=== PATIENT | female | born 1950 | race Hispanic/Latino ===

== ENCOUNTER 2016-11-28 20:43 | Inpatient (IN) | payer OTHER, MEDICARE ==
[2016-11-25 22:05] VITALS: PULSE 128
[2016-11-28 20:50] VITALS: BMI 24.8
[2016-11-29] MEDS: Albuterol-Ipratrop 3 mg / 0.5 (3 ml) UD INH SCH ×4 (01:16→19:22)
[2016-11-29] MEDS: Levothyroxine 25 MCG TAB PO SCH (06:37)
[2016-11-29] MEDS: Magnesium Oxide 400 mg Tab UD PO SCH ×2 (08:52→17:09)
--- NOTE | 2016-11-29 11:59 | CP.PCM.CON ---
History of Present Illness - History of Present Illness History of Present Illness: Dr Rodriguez PMR consultation on Sharlene Morales, born 1950, who is left handed and being admitted to [facility] for acute inpatient rehabilitation following a left CVA with right HP. 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 Review of Systems - Constitutional Constitutional: absent: Anorexia, Chills - EENT Eyes: absent: Blurred Vision, Change in Vision Nose/Mouth/Throat: absent: Nasal Congestion - Cardiovascular Cardiovascular: absent: Chest Pain - Respiratory Respiratory: Cough (smoker) - Gastrointestinal Gastrointestinal: absent: Abdominal Pain - Musculoskeletal Musculoskeletal: absent: Arthralgias, Back Pain - Neurological Neurological: absent: Abnormal Movements, Confusion Past Patient History - Past Medical History & Family History Past Medical History?: Yes - Past Social History Smoking Status: Former Smoker (heavy tobacco use) - CARDIAC Hx Cardiac Disorders: Yes Hx Hypertension: Yes - PULMONARY Hx Bronchitis: Yes - NEUROLOGICAL Hx Neurological Disorder: No - HEENT Hx HEENT Problems: No - RENAL Hx Chronic Kidney Disease: No - ENDOCRINE/METABOLIC Hx Hypothyroidism: Yes - HEMATOLOGICAL/ONCOLOGICAL Hx Blood Disorders: No - INTEGUMENTARY Hx Dermatological Problems: No - MUSCULOSKELETAL/RHEUMATOLOGICAL Hx Falls: Yes - GASTROINTESTINAL Hx Gastrointestinal Disorders: No - GENITOURINARY/GYNECOLOGICAL Hx Genitourinary Disorders: No - PSYCHIATRIC Hx Substance Use: No - SURGICAL HISTORY Other/Comment: Hx of basilio breast biopsy - ANESTHESIA Hx Anesthesia: Yes Hx Anesthesia Reactions: No Hx Malignant Hyperthermia: No Meds Allergies/Adverse Reactions: Allergies Allergy/AdvReac Type Severity Reaction Status Date / Time Antihistamines - Alkylamine Allergy Mild A-fib Verified 11/29/16 04:48 Penicillins Allergy Mild SWELLING Verified 11/29/16 04:48 - Medications Medications: Current Medications Albuterol/Ipratropium (Duoneb 3 Mg/0.5 Mg (3 Ml) Ud) 3 ml INH RQ6 [facility] Last Admin: 11/29/16 07:45 Dose: 3 ml Apixaban (Eliquis) 2.5 mg PO BID [facility] PRN Reason: Protocol Last Admin: 11/29/16 08:52 Dose: 2.5 mg Aspirin (Aspirin Chewable) 81 mg PO DAILY [facility] Last Admin: 11/29/16 08:52 Dose: 81 mg Atorvastatin Calcium (Lipitor) 40 mg PO HS [facility] Last Admin: 11/28/16 23:12 Dose: 40 mg Famotidine (Pepcid) 20 mg PO DAILY [facility] Last Admin: 11/29/16 08:51 Dose: 20 mg Levothyroxine Sodium (Synthroid) 25 mcg PO DAILY@0630 [facility] Last Admin: 11/29/16 06:37 Dose: 25 mcg Magnesium Oxide (Mag-Ox) 400 mg PO BID [facility] Last Admin: 11/29/16 08:52 Dose: 400 mg Metoprolol Tartrate (Lopressor) 12.5 mg PO BID [facility] Last Admin: 11/29/16 08:51 Dose: 12.5 mg Nicotine (Nicoderm Cq) 1 patch TD DAILY [facility] Last Admin: 11/29/16 08:50 Dose: 1 patch Physical Exam - Constitutional Appears: Well, Non-toxic, No Acute Distress - Head Exam Head Exam: ATRAUMATIC, NORMAL INSPECTION, NORMOCEPHALIC - Eye Exam Eye Exam: EOMI - ENT Exam ENT Exam: Mucous Membranes Moist - Respiratory Exam Respiratory Exam: NORMAL BREATHING PATTERN - Cardiovascular Exam Cardiovascular Exam: REGULAR RHYTHM - GI/Abdominal Exam GI & Abdominal Exam: absent: Distended - Extremities Exam Extremities exam: Positive for: full ROM. Negative for: calf tenderness, pedal edema - Neurological Exam Neurological exam: Alert, CN II-XII Intact (mild right UE weakness and pronator drift with dysmetria), Oriented x3 - Psychiatric Exam Psychiatric exam: Normal Affect, Normal Mood - Skin Skin Exam: Warm Results - Vital Signs Recent Vital Signs: Last Vital Signs Temp 98.4 F 11/29/16 08:00 Pulse 90 11/29/16 08:51 Resp 22 11/29/16 08:00 BP 126/66 11/29/16 08:51 Pulse Ox 92 L 11/29/16 08:00 Assessment & Plan - Assessment and Plan (Free Text) Assessment: PT/OT to continue to help increase functional independence Team conference for d/c planning Pain: controlled Vascular: no evidence of DVT GI: No evidence of constipation or diarrhea Patient is an excellent acute rehabilitation candidate and will have focused PT , OT and recreational therapy to help facilitate a safe and appropriate d/c plan impairment code 01.2
--- NOTE | 2016-11-29 12:01 | CP.PCM.PN ---
Subjective - Date & Time of Evaluation Date of Evaluation: 11/29/16 Time of Evaluation: 12:00 - Subjective Subjective: left cva, right HP Objective - Vital Signs/Intake and Output Vital Signs (last 24 hours): Temp Pulse Resp BP Pulse Ox 98.4 F 90 22 126/66 92 L 11/29/16 08:00 11/29/16 08:51 11/29/16 08:00 11/29/16 08:51 11/29/16 08:00 - Medications Medications: Current Medications Albuterol/Ipratropium (Duoneb 3 Mg/0.5 Mg (3 Ml) Ud) 3 ml INH RQ6 [facility] Last Admin: 11/29/16 07:45 Dose: 3 ml Apixaban (Eliquis) 2.5 mg PO BID [facility] PRN Reason: Protocol Last Admin: 11/29/16 08:52 Dose: 2.5 mg Aspirin (Aspirin Chewable) 81 mg PO DAILY [facility] Last Admin: 11/29/16 08:52 Dose: 81 mg Atorvastatin Calcium (Lipitor) 40 mg PO HS [facility] Last Admin: 11/28/16 23:12 Dose: 40 mg Famotidine (Pepcid) 20 mg PO DAILY [facility] Last Admin: 11/29/16 08:51 Dose: 20 mg Levothyroxine Sodium (Synthroid) 25 mcg PO DAILY@0630 [facility] Last Admin: 11/29/16 06:37 Dose: 25 mcg Magnesium Oxide (Mag-Ox) 400 mg PO BID [facility] Last Admin: 11/29/16 08:52 Dose: 400 mg Metoprolol Tartrate (Lopressor) 12.5 mg PO BID [facility] Last Admin: 11/29/16 08:51 Dose: 12.5 mg Nicotine (Nicoderm Cq) 1 patch TD DAILY [facility] Last Admin: 11/29/16 08:50 Dose: 1 patch Physiatry Overall Plan of Care - Overall Plan of Care Estimated Length of Stay in Weeks: 2 Rehab Impairment: Mobility, Gait, Balance, Coordination Etiologic Diagnosis: Cerebrovascular Accident Rehab/Medical Prognosis: Good - Anticipated Interventions Physical Therapy:: Yes Occupational Therapy:: Yes Speech Therapy:: Yes Recreational Therapy:: Yes - Therapy Goals Bed Mobility: Independent Ambulation: Independent Functional Positional Changes:: Independent - Discharge Plan Identification of Barriers to Discharge: Home Situation Discharge Destination: Home
--- NOTE | 2016-11-29 12:56 | HP ---
HISTORY OF PRESENT ILLNESS: Ms. Morales is a 66-year-old female who was admitted to acute rehab following treatment at [facility] for acute cerebrovascular accident. She had a cerebrovascular accident with right-sided weakness and slurred speech and had been treated at [facility] and transferred to acute rehab for further aggressive intervention. PAST MEDICAL HISTORY: She has a past medical history of hypertension, hyperlipidemia, mild COPD from cigarette smoke, and hypothyroidism. FAMILY HISTORY: Remarkable for a sister who has cardiomyopathy. SOCIAL HISTORY: She smokes cigarette, abuses drugs, abuses alcohol. Lives at home with sister and works as a respiratory therapist at [employer]. PHYSICAL EXAMINATION: GENERAL: This patient is alert and oriented to person, place and time. Presently, she has slurred speech and weakness of right arm and leg. VITAL SIGNS: Blood pressure 126/66 with a pulse of 90, respiratory rate of 20 per minute. She is afebrile, O2 sat 92% on room air. SKIN: Shows fair turgor. HEENT: Pupils equal, round, reactive to light and accommodation. Mouth shows fair hygiene. NECK: JVP flat. LUNGS: Clear. HEART: Regular. No murmur, no gallops. ABDOMEN: Soft. Nontender. No organomegaly. EXTREMITIES: She has no edema or cyanosis. CENTRAL NERVOUS SYSTEM: Remarkable for slurred speech and right-sided weakness. LABORATORY DATA: Pending. IMPRESSION: Acute cerebrovascular accident, hyperlipidemia, hypertension, hypothyroidism, mild chronic obstructive pulmonary disease from cigarette smoking. PLAN: Continue aggressive rehab. Physiatry evaluation and speech therapy evaluation for swallowing prior to advancing diet. Jad Marcano MD
--- NOTE | 2016-11-29 14:41 | CON ---
DATE: 11/29/2016 NEUROLOGY CONSULTATION CHIEF COMPLAINT: Right-sided weakness status post basal ganglia CVA. HISTORY OF PRESENT ILLNESS: A 66-year-old woman with past medical history of hypertension, hyperlipidemia, mild COPD from cigarette smoking, hypothyroidism was recently admitted to [facility] because of right-sided, slurred speech and found to have A-fib with rapid RVR. She underwent an JEAN and double bubble study which was negative as well as carotid Doppler which showed no significant carotid stenosis and was placed on Eliquis given her risk of A-fib for stroke prevention as well as aspirin 81 mg p.o. daily. She is currently in [facility] for acute rehabilitation for poor balance and mild right-sided weakness. PAST MEDICAL HISTORY: She has history of hypertension, hyperlipidemia, mild COPD from cigarette smoking, and hypothyroidism. FAMILY HISTORY: Sister has history of cardiomyopathy. SOCIAL HISTORY: Smokes cigarettes, abuses drugs, abuses alcohol in the past. Lives at home with sister and works as respiratory therapist at [employer]. ALLERGIES: ANTIHISTAMINES AND PENICILLIN. REVIEW OF SYSTEMS: A 14-point review of system is negative except for HPI. PHYSICAL EXAMINATION GENERAL: The patient seen in the chair, in no acute distress. VITAL SIGNS: Temperature 98.4, pulse rate 90, blood pressure 126/60, respiratory rate 20, oxygen saturation 92% via room air. HEENT: Atraumatic, normocephalic. PERRLA. Extraocular muscles intact. NECK: Supple. No JVD. No adenopathy noted. LUNGS: Clear to auscultation. No adventitious sounds. HEART: S1 and S2, normal rate and rhythm. No murmur, rubs, or gallops. ABDOMEN: Soft, nontender, nondistended. Bowel sounds present. EXTREMITIES: No clubbing. No cyanosis. Peripheral pulses 2+ felt bilaterally. NEUROLOGIC: The patient is alert and oriented to person, place, month, and year. Speech is slightly dysarthric. No aphasia noted. Recall after 5 minutes is 2/3. Cranial nerves II through XII are intact except for slight right facial droop. Otherwise motor exam has 4+ to 5-/5 right-sided weakness compare to left. Right toe is upgoing. Left toe is downgoing. Sensory exam: Light touch pinprick, proprioception, and vibration is intact. DTRs are 2+ throughout. Coordination of [id number] intact. Gait deferred for now. LABORATORY DATA: Sodium 144, potassium 4.5, chloride of 105, carbon dioxide 29, BUN of 16, creatinine 0.8, random glucose 118. ASSESSMENT AND PLAN: This is a 66-year-old woman with history of hypertension, dyslipidemia, cigarette smoker's mild chronic obstructive pulmonary disease, hypothyroidism who was seen at [facility] for right-sided weakness and slurred speech, found to have an acute left basal ganglia infarct as well as olivas radiata which was responsible for her underlying right-sided weakness and poor balance secondary to underlying diffuse atherosclerosis from underlying hypertension and hyperlipidemia. She was also found an atrial fibrillation rapid ventricular response paroxysmally which makes her at risk for further strokes in the future. Therefore, she is placed on Eliquis 2.5 mg p.o. b.i.d. A carotid Doppler and transesophageal echo with bubble study were negative for any acute abnormalities. At this time she is in [facility] for physical and occupational therapy and speech therapy. RECOMMENDATIONS: 1. At this time we will recommend to continue with Eliquis 2.5 mg p.o. b.i.d. and baby aspirin 81 mg p.o. daily and Lipitor 40 mg p.o. at bedtime for stroke prevention. 2. Monitor her heart rate. 3. Continue with levothyroxine 25 mcg p.o. daily for underlying hypothyroidism. 4. Advise cigarette cessation. 5. Continue with PT/OT and speech therapy and acute rehab. Thank you for this consult. Alan Enriquez MD
[2016-11-30] MEDS: Albuterol-Ipratrop 3 mg / 0.5 (3 ml) UD INH SCH ×4 (04:44→19:47)
[2016-11-30] MEDS: Levothyroxine 25 MCG TAB PO SCH (06:27)
[2016-11-30 06:55] LABS: HEMATOCRIT 34.7 % (34.0-47.0); MEAN CELL VOLUME 106.4 fl (81.0-99.0); MEAN CORPUSCULAR HEMOGLOBIN 35.8 pg (27.0-31.0); MEAN CORPUSCULAR HGB CONC 33.6 g/dL (33.0-37.0); WHITE BLOOD COUNT 5.2 K/uL (4.8-10.8)
[2016-11-30 07:07] LABS: ALB/GLOB RATIO 1.2 (1.0-2.1); ALKALINE PHOSPHATASE 43 U/L (38-126); ALT/SGPT 29 U/L (9-52); AST/SGOT 26 U/L (14-36); BILIRUBIN,TOTAL 0.6 mg/dl (0.2-1.3); BLOOD UREA NITROGEN 15 mg/dl (7-17); CALCIUM 9.2 mg/dL (8.4-10.2); CARBON DIOXIDE 32 mmol/L (22-30); CHLORIDE 104 mmol/L (98-107); CHOLESTEROL 141 mg/dL (0-199); GFR AFRICAN-AMERICAN > 60; GLUCOSE,RANDOM 104 mg/dL (65-105); POTASSIUM 4.5 MMOL/L (3.6-5.0); SODIUM 141 mmol/l (132-148); TOTAL PROTEIN 6.2 G/DL (6.3-8.2)
[2016-11-30] MEDS: Magnesium Oxide 400 mg Tab UD PO SCH ×2 (08:49→17:45)
--- NOTE | 2016-11-30 09:29 | CP.PCM.PN ---
Subjective - Date & Time of Evaluation Date of Evaluation: 11/30/16 Time of Evaluation: 09:29 - Subjective Subjective: R ARM AND LEG WEAKNESS PERSIST SPEECH STILL SLURRED Objective - Vital Signs/Intake and Output Vital Signs (last 24 hours): Temp Pulse Resp BP Pulse Ox 98.1 F 70 22 140/85 95 11/30/16 08:58 11/30/16 08:58 11/30/16 08:58 11/30/16 08:58 11/30/16 08:58 - Medications Medications: Current Medications Albuterol/Ipratropium (Duoneb 3 Mg/0.5 Mg (3 Ml) Ud) 3 ml INH RQ6 [facility] Last Admin: 11/30/16 07:20 Dose: 3 ml Apixaban (Eliquis) 2.5 mg PO BID [facility] PRN Reason: Protocol Last Admin: 11/30/16 08:49 Dose: 2.5 mg Aspirin (Aspirin Chewable) 81 mg PO DAILY [facility] Last Admin: 11/30/16 08:49 Dose: 81 mg Atorvastatin Calcium (Lipitor) 40 mg PO HS [facility] Last Admin: 11/29/16 21:35 Dose: 40 mg Famotidine (Pepcid) 20 mg PO DAILY [facility] Last Admin: 11/30/16 08:50 Dose: 20 mg Levothyroxine Sodium (Synthroid) 25 mcg PO DAILY@0630 [facility] Last Admin: 11/30/16 06:27 Dose: 25 mcg Magnesium Oxide (Mag-Ox) 400 mg PO BID [facility] Last Admin: 11/30/16 08:49 Dose: 400 mg Metoprolol Tartrate (Lopressor) 12.5 mg PO BID [facility] Last Admin: 11/30/16 08:47 Dose: 12.5 mg Nicotine (Nicoderm Cq) 1 patch TD DAILY [facility] Last Admin: 11/30/16 08:49 Dose: 1 patch - Labs Labs: 11/30/16 06:15 11/30/16 06:15 - Constitutional Appears: No Acute Distress - Head Exam Head Exam: ATRAUMATIC, NORMAL INSPECTION, NORMOCEPHALIC - Eye Exam Eye Exam: EOMI, Normal appearance, PERRL Pupil Exam: NORMAL ACCOMODATION, PERRL - ENT Exam ENT Exam: Mucous Membranes Moist, Normal Exam - Neck Exam Neck Exam: Full ROM, Normal Inspection. absent: Lymphadenopathy - Respiratory Exam Respiratory Exam: Clear to Ausculation Bilateral, NORMAL BREATHING PATTERN - Cardiovascular Exam Cardiovascular Exam: REGULAR RHYTHM, +S1, +S2. absent: Murmur - GI/Abdominal Exam GI & Abdominal Exam: Soft, Normal Bowel Sounds. absent: Tenderness - Rectal Exam Rectal Exam: NORMAL INSPECTION - Extremities Exam Extremities Exam: Full ROM, Normal Capillary Refill, Normal Inspection. absent : Joint Swelling, Pedal Edema Additional comments: R ARM AND LEG WEAKNESS - Back Exam Back Exam: NORMAL INSPECTION - Neurological Exam Neurological Exam: Alert, Awake, CN II-XII Intact, Oriented x3 Additional comments: R ARM AND LEG WEAKNESS WITH SLURRED SPEECH - Psychiatric Exam Psychiatric exam: Normal Affect, Normal Mood - Skin Skin Exam: Dry, Intact, Normal Color, Warm Assessment and Plan - Assessment and Plan (Free Text) Assessment: CVA WITH R HEMIPARESES Plan: CONTINUE PRESENT RX
[2016-11-30] MEDS: Promethazine DM 12.5 mg-30 mg/10 ml Syrup PO PRN (17:44)
--- NOTE | 2016-11-30 18:01 | CP.PCM.PN ---
Subjective - Date & Time of Evaluation Date of Evaluation: 11/30/16 Time of Evaluation: 18:01 - Subjective Subjective: Patient seen in room in good spirits feels good no pain continued gains in therapies excellent acute rehab patient Objective - Vital Signs/Intake and Output Vital Signs (last 24 hours): Temp Pulse Resp BP Pulse Ox 98.1 F 93 H 22 135/75 94 L 11/30/16 08:58 11/30/16 17:41 11/30/16 08:58 11/30/16 17:41 11/30/16 10:16 - Medications Medications: Current Medications Albuterol/Ipratropium (Duoneb 3 Mg/0.5 Mg (3 Ml) Ud) 3 ml INH RQ6 [facility] Last Admin: 11/30/16 13:21 Dose: 3 ml Apixaban (Eliquis) 2.5 mg PO BID [facility] PRN Reason: Protocol Last Admin: 11/30/16 17:40 Dose: 2.5 mg Aspirin (Aspirin Chewable) 81 mg PO DAILY [facility] Last Admin: 11/30/16 08:49 Dose: 81 mg Atorvastatin Calcium (Lipitor) 40 mg PO HS [facility] Last Admin: 11/29/16 21:35 Dose: 40 mg Famotidine (Pepcid) 20 mg PO DAILY [facility] Last Admin: 11/30/16 08:50 Dose: 20 mg Levothyroxine Sodium (Synthroid) 25 mcg PO DAILY@0630 [facility] Last Admin: 11/30/16 06:27 Dose: 25 mcg Magnesium Oxide (Mag-Ox) 400 mg PO BID [facility] Last Admin: 11/30/16 17:45 Dose: 400 mg Metoprolol Tartrate (Lopressor) 12.5 mg PO BID [facility] Last Admin: 11/30/16 17:41 Dose: 12.5 mg Nicotine (Nicoderm Cq) 1 patch TD DAILY [facility] Last Admin: 11/30/16 08:49 Dose: 1 patch Promethazine HCl/Dextromethorphan (Phenergan Dm Syrup) 10 ml PO Q4 [facility] PRN Reason: Cough Last Admin: 11/30/16 17:44 Dose: 10 ml - Labs Labs: 11/30/16 06:15 11/30/16 06:15
[2016-12-01] MEDS: Albuterol-Ipratrop 3 mg / 0.5 (3 ml) UD INH SCH ×4 (01:10→19:58)
[2016-12-01] MEDS: Levothyroxine 25 MCG TAB PO SCH (06:46)
[2016-12-01] MEDS: Magnesium Oxide 400 mg Tab UD PO SCH ×2 (08:12→17:10)
[2016-12-01] MEDS: Promethazine DM 12.5 mg-30 mg/10 ml Syrup PO PRN ×2 (08:14→08:22)
--- NOTE | 2016-12-01 15:26 | CP.PCM.PN ---
Subjective - Date & Time of Evaluation Date of Evaluation: 12/01/16 Time of Evaluation: 15:26 - Subjective Subjective: WEAKNESS OF R ARM AND LEG IMPROVING MEMORY STILL POOR Objective - Vital Signs/Intake and Output Vital Signs (last 24 hours): Temp Pulse Resp BP Pulse Ox 98 F 95 H 20 130/104 H 95 12/01/16 08:10 12/01/16 08:12 12/01/16 08:10 12/01/16 08:12 12/01/16 08:10 - Medications Medications: Current Medications Albuterol/Ipratropium (Duoneb 3 Mg/0.5 Mg (3 Ml) Ud) 3 ml INH RQ6 [facility] Last Admin: 12/01/16 13:11 Dose: Not Given Apixaban (Eliquis) 2.5 mg PO BID [facility] PRN Reason: Protocol Last Admin: 12/01/16 08:14 Dose: 2.5 mg Aspirin (Aspirin Chewable) 81 mg PO DAILY [facility] Last Admin: 12/01/16 08:12 Dose: 81 mg Atorvastatin Calcium (Lipitor) 40 mg PO HS [facility] Last Admin: 11/30/16 21:37 Dose: 40 mg Famotidine (Pepcid) 20 mg PO DAILY [facility] Last Admin: 12/01/16 08:12 Dose: 20 mg Levothyroxine Sodium (Synthroid) 25 mcg PO DAILY@0630 [facility] Last Admin: 12/01/16 06:46 Dose: 25 mcg Magnesium Oxide (Mag-Ox) 400 mg PO BID [facility] Last Admin: 12/01/16 08:12 Dose: 400 mg Metoprolol Tartrate (Lopressor) 12.5 mg PO BID [facility] Last Admin: 12/01/16 08:12 Dose: 12.5 mg Nicotine (Nicoderm Cq) 1 patch TD DAILY [facility] Last Admin: 12/01/16 08:13 Dose: 1 patch Promethazine HCl/Dextromethorphan (Phenergan Dm Syrup) 10 ml PO Q4 [facility] PRN Reason: Cough Last Admin: 12/01/16 08:22 Dose: 10 ml - Labs Labs: 11/30/16 06:15 11/30/16 06:15 - Constitutional Appears: Well - Head Exam Head Exam: ATRAUMATIC, NORMAL INSPECTION, NORMOCEPHALIC - Eye Exam Eye Exam: EOMI, Normal appearance, PERRL Pupil Exam: NORMAL ACCOMODATION, PERRL - ENT Exam ENT Exam: Mucous Membranes Moist, Normal Exam - Neck Exam Neck Exam: Full ROM, Normal Inspection. absent: Lymphadenopathy - Respiratory Exam Respiratory Exam: Clear to Ausculation Bilateral, NORMAL BREATHING PATTERN - Cardiovascular Exam Cardiovascular Exam: REGULAR RHYTHM, +S1, +S2. absent: Murmur - GI/Abdominal Exam GI & Abdominal Exam: Soft, Normal Bowel Sounds. absent: Tenderness - Rectal Exam Rectal Exam: NORMAL INSPECTION - Extremities Exam Extremities Exam: Full ROM, Normal Capillary Refill, Normal Inspection. absent : Joint Swelling, Pedal Edema Additional comments: WEAKNESS R ARM AND LEG - Back Exam Back Exam: NORMAL INSPECTION - Neurological Exam Neurological Exam: Abnormal Gait, Alert, Awake, CN II-XII Intact, Oriented x3 - Psychiatric Exam Psychiatric exam: Normal Affect, Normal Mood - Skin Skin Exam: Dry, Intact, Normal Color, Warm Assessment and Plan - Assessment and Plan (Free Text) Assessment: CVA HTN HYPOTHYROIDISM Plan: CARDIOLOGY EVAL CONTINUE PT/OT
--- NOTE | 2016-12-01 16:07 | CP.PCM.CON ---
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 Has regained almost all her strength in Right arm and leg Speech is much better but not 100% Apparently pt had a bout of transient Atrial Fibrillation in the past but has been in NSR for years; off all meds Echo and JEAN were done in [facility] no report PMH: Hypertension Hypothyroid Hyperlipidemia Past Patient History - Past Medical History & Family History Past Medical History?: Yes - Past Social History Smoking Status: Former Smoker (heavy tobacco use) - CARDIAC Hx Cardiac Disorders: Yes Hx Hypertension: Yes - PULMONARY Hx Bronchitis: Yes - NEUROLOGICAL Hx Neurological Disorder: No - HEENT Hx HEENT Problems: No - RENAL Hx Chronic Kidney Disease: No - ENDOCRINE/METABOLIC Hx Hypothyroidism: Yes - HEMATOLOGICAL/ONCOLOGICAL Hx Blood Disorders: No - INTEGUMENTARY Hx Dermatological Problems: No - MUSCULOSKELETAL/RHEUMATOLOGICAL Hx Falls: Yes - GASTROINTESTINAL Hx Gastrointestinal Disorders: No - GENITOURINARY/GYNECOLOGICAL Hx Genitourinary Disorders: No - PSYCHIATRIC Hx Substance Use: No - SURGICAL HISTORY Other/Comment: Hx of basilio breast biopsy - ANESTHESIA Hx Anesthesia: Yes Hx Anesthesia Reactions: No Hx Malignant Hyperthermia: No Meds Allergies/Adverse Reactions: Allergies Allergy/AdvReac Type Severity Reaction Status Date / Time Antihistamines - Alkylamine Allergy Mild A-fib Verified 11/29/16 04:48 Penicillins Allergy Mild SWELLING Verified 11/29/16 04:48 - Medications Medications: Current Medications Albuterol/Ipratropium (Duoneb 3 Mg/0.5 Mg (3 Ml) Ud) 3 ml INH RQ6 [facility] Last Admin: 12/01/16 13:11 Dose: Not Given Apixaban (Eliquis) 2.5 mg PO BID [facility] PRN Reason: Protocol Last Admin: 12/01/16 08:14 Dose: 2.5 mg Aspirin (Aspirin Chewable) 81 mg PO DAILY [facility] Last Admin: 12/01/16 08:12 Dose: 81 mg Atorvastatin Calcium (Lipitor) 40 mg PO HS [facility] Last Admin: 11/30/16 21:37 Dose: 40 mg Famotidine (Pepcid) 20 mg PO DAILY [facility] Last Admin: 12/01/16 08:12 Dose: 20 mg Levothyroxine Sodium (Synthroid) 25 mcg PO DAILY@0630 [facility] Last Admin: 12/01/16 06:46 Dose: 25 mcg Magnesium Oxide (Mag-Ox) 400 mg PO BID [facility] Last Admin: 12/01/16 08:12 Dose: 400 mg Metoprolol Tartrate (Lopressor) 12.5 mg PO BID [facility] Last Admin: 12/01/16 08:12 Dose: 12.5 mg Nicotine (Nicoderm Cq) 1 patch TD DAILY [facility] Last Admin: 12/01/16 08:13 Dose: 1 patch Promethazine HCl/Dextromethorphan (Phenergan Dm Syrup) 10 ml PO Q4 PRN PRN Reason: Cough Last Admin: 12/01/16 08:22 Dose: 10 ml Results - Vital Signs Recent Vital Signs: Last Vital Signs Temp 98 F 12/01/16 08:10 Pulse 95 H 12/01/16 08:12 Resp 20 12/01/16 08:10 BP 130/104 H 12/01/16 08:12 Pulse Ox 95 12/01/16 08:10 - Labs Result Diagrams: 11/30/16 06:15 11/30/16 06:15 Assessment & Plan (1) CVA (cerebral vascular accident) Status: Acute Priority: High (2) History of atrial fibrillation Assessment and Plan: Cardiac-lepe the patient appears to be stable She is not in initial fibrillation she is in normal sinus rhythm. will Research the results of the echocardiogram and the JEAN Status: Acute (3) History of hypertension Status: Chronic (4) History of hypothyroidism Status: Chronic
[2016-12-02] MEDS: Albuterol-Ipratrop 3 mg / 0.5 (3 ml) UD INH SCH ×4 (02:34→19:23)
[2016-12-02] MEDS: Levothyroxine 25 MCG TAB PO SCH (06:31)
[2016-12-02] MEDS: Magnesium Oxide 400 mg Tab UD PO SCH ×2 (08:20→16:58)
--- NOTE | 2016-12-02 10:49 | CP.PCM.PN ---
Subjective - Date & Time of Evaluation Date of Evaluation: 12/02/16 Time of Evaluation: 10:51 - Subjective Subjective: NO NEW CLINICAL FINDINGS Objective - Vital Signs/Intake and Output Vital Signs (last 24 hours): Temp Pulse Resp BP Pulse Ox 98.4 F 62 22 135/73 94 L 12/02/16 08:38 12/02/16 08:38 12/02/16 08:38 12/02/16 08:38 12/02/16 08:38 - Medications Medications: Current Medications Albuterol/Ipratropium (Duoneb 3 Mg/0.5 Mg (3 Ml) Ud) 3 ml INH RQ6 [facility] Last Admin: 12/02/16 07:10 Dose: 3 ml Apixaban (Eliquis) 2.5 mg PO BID [facility] PRN Reason: Protocol Last Admin: 12/02/16 08:19 Dose: 2.5 mg Aspirin (Aspirin Chewable) 81 mg PO DAILY [facility] Last Admin: 12/02/16 08:19 Dose: 81 mg Atorvastatin Calcium (Lipitor) 40 mg PO HS [facility] Last Admin: 12/01/16 21:51 Dose: 40 mg Famotidine (Pepcid) 20 mg PO DAILY [facility] Last Admin: 12/02/16 08:20 Dose: 20 mg Levothyroxine Sodium (Synthroid) 25 mcg PO DAILY@0630 [facility] Last Admin: 12/02/16 06:31 Dose: 25 mcg Magnesium Oxide (Mag-Ox) 400 mg PO BID [facility] Last Admin: 12/02/16 08:20 Dose: 400 mg Metoprolol Tartrate (Lopressor) 12.5 mg PO BID [facility] Last Admin: 12/02/16 08:21 Dose: 12.5 mg Nicotine (Nicoderm Cq) 1 patch TD DAILY [facility] Last Admin: 12/02/16 08:20 Dose: 1 patch Promethazine HCl/Dextromethorphan (Phenergan Dm Syrup) 10 ml PO Q4 PRN PRN Reason: Cough Last Admin: 12/01/16 08:22 Dose: 10 ml - Labs Labs: 11/30/16 06:15 11/30/16 06:15 - Constitutional Appears: No Acute Distress - Head Exam Head Exam: ATRAUMATIC, NORMAL INSPECTION, NORMOCEPHALIC - Eye Exam Eye Exam: EOMI, Normal appearance, PERRL Pupil Exam: NORMAL ACCOMODATION, PERRL - ENT Exam ENT Exam: Mucous Membranes Moist, Normal Exam - Neck Exam Neck Exam: Full ROM, Normal Inspection. absent: Lymphadenopathy - Respiratory Exam Respiratory Exam: Clear to Ausculation Bilateral, NORMAL BREATHING PATTERN - Cardiovascular Exam Cardiovascular Exam: REGULAR RHYTHM, +S1, +S2. absent: Murmur - GI/Abdominal Exam GI & Abdominal Exam: Soft, Normal Bowel Sounds. absent: Tenderness - Rectal Exam Rectal Exam: NORMAL INSPECTION - Extremities Exam Extremities Exam: Full ROM, Normal Capillary Refill, Normal Inspection. absent : Joint Swelling, Pedal Edema Additional comments: R ARM AND LEG WEAKNESS IMPROVING - Back Exam Back Exam: NORMAL INSPECTION - Neurological Exam Neurological Exam: Alert, Awake, CN II-XII Intact, Normal Gait, Oriented x3 Additional comments: WEAKNESS OF R ARM AND LEG IMPROVING - Psychiatric Exam Psychiatric exam: Normal Affect, Normal Mood - Skin Skin Exam: Dry, Intact, Normal Color, Warm Assessment and Plan - Assessment and Plan (Free Text) Assessment: CVA HTN PAROXYSMAL A.FIB HYPOTHYROIDISM SMOKER'S COUGH Plan: CONTINUE RX ORDERED
--- NOTE | 2016-12-02 11:44 | CP.PCM.PN ---
Subjective - Date & Time of Evaluation Date of Evaluation: 12/02/16 Time of Evaluation: 11:43 - Subjective Subjective: Patient seen in [facility] (formerly [facility]) well without AD now improved balance, safety and endurance continue current care Objective - Vital Signs/Intake and Output Vital Signs (last 24 hours): Temp Pulse Resp BP Pulse Ox 98.4 F 62 22 135/73 94 L 12/02/16 08:38 12/02/16 08:38 12/02/16 08:38 12/02/16 08:38 12/02/16 08:38 - Medications Medications: Current Medications Albuterol/Ipratropium (Duoneb 3 Mg/0.5 Mg (3 Ml) Ud) 3 ml INH RQ6 [facility] Last Admin: 12/02/16 07:10 Dose: 3 ml Apixaban (Eliquis) 2.5 mg PO BID [facility] PRN Reason: Protocol Last Admin: 12/02/16 08:19 Dose: 2.5 mg Aspirin (Aspirin Chewable) 81 mg PO DAILY [facility] Last Admin: 12/02/16 08:19 Dose: 81 mg Atorvastatin Calcium (Lipitor) 40 mg PO HS [facility] Last Admin: 12/01/16 21:51 Dose: 40 mg Famotidine (Pepcid) 20 mg PO DAILY [facility] Last Admin: 12/02/16 08:20 Dose: 20 mg Levothyroxine Sodium (Synthroid) 25 mcg PO DAILY@0630 [facility] Last Admin: 12/02/16 06:31 Dose: 25 mcg Magnesium Oxide (Mag-Ox) 400 mg PO BID [facility] Last Admin: 12/02/16 08:20 Dose: 400 mg Metoprolol Tartrate (Lopressor) 12.5 mg PO BID [facility] Last Admin: 12/02/16 08:21 Dose: 12.5 mg Nicotine (Nicoderm Cq) 1 patch TD DAILY [facility] Last Admin: 12/02/16 08:20 Dose: 1 patch Promethazine HCl/Dextromethorphan (Phenergan Dm Syrup) 10 ml PO Q4 PRN PRN Reason: Cough Last Admin: 12/01/16 08:22 Dose: 10 ml - Labs Labs: 11/30/16 06:15 11/30/16 06:15
[2016-12-02] MEDS: Promethazine DM 12.5 mg-30 mg/10 ml Syrup PO PRN (20:28)
[2016-12-03] MEDS: Albuterol-Ipratrop 3 mg / 0.5 (3 ml) UD INH SCH ×4 (00:59→20:06)
[2016-12-03] MEDS: Levothyroxine 25 MCG TAB PO SCH (06:59)
[2016-12-03] MEDS: Magnesium Oxide 400 mg Tab UD PO SCH ×2 (08:10→17:05)
--- NOTE | 2016-12-03 10:55 | CP.PCM.PN ---
Subjective - Date & Time of Evaluation Date of Evaluation: 12/03/16 Time of Evaluation: 10:55 - Subjective Subjective: continues to show marked clinical improvement in both speech and muscle strenght Objective - Vital Signs/Intake and Output Vital Signs (last 24 hours): Temp Pulse Resp BP Pulse Ox 97.3 F L 61 20 114/69 96 12/03/16 09:25 12/03/16 09:25 12/03/16 09:25 12/03/16 09:25 12/03/16 09:25 - Medications Medications: Current Medications Albuterol/Ipratropium (Duoneb 3 Mg/0.5 Mg (3 Ml) Ud) 3 ml INH RQ6 [facility] Last Admin: 12/03/16 08:57 Dose: 3 ml Apixaban (Eliquis) 2.5 mg PO BID [facility] PRN Reason: Protocol Last Admin: 12/03/16 08:09 Dose: 2.5 mg Aspirin (Aspirin Chewable) 81 mg PO DAILY [facility] Last Admin: 12/03/16 08:09 Dose: 81 mg Atorvastatin Calcium (Lipitor) 40 mg PO HS [facility] Last Admin: 12/02/16 21:11 Dose: 40 mg Famotidine (Pepcid) 20 mg PO DAILY [facility] Last Admin: 12/03/16 08:11 Dose: 20 mg Levothyroxine Sodium (Synthroid) 25 mcg PO DAILY@0630 [facility] Last Admin: 12/03/16 06:59 Dose: 25 mcg Magnesium Oxide (Mag-Ox) 400 mg PO BID [facility] Last Admin: 12/03/16 08:10 Dose: 400 mg Metoprolol Tartrate (Lopressor) 12.5 mg PO BID [facility] Last Admin: 12/03/16 08:10 Dose: 12.5 mg Nicotine (Nicoderm Cq) 1 patch TD DAILY [facility] Last Admin: 12/03/16 08:10 Dose: 1 patch Promethazine HCl/Dextromethorphan (Phenergan Dm Syrup) 10 ml PO Q4 PRN PRN Reason: Cough Last Admin: 12/02/16 20:28 Dose: 10 ml - Labs Labs: 11/30/16 06:15 11/30/16 06:15 - Constitutional Appears: No Acute Distress - Head Exam Head Exam: ATRAUMATIC, NORMAL INSPECTION, NORMOCEPHALIC - Eye Exam Eye Exam: EOMI, Normal appearance, PERRL Pupil Exam: NORMAL ACCOMODATION, PERRL - ENT Exam ENT Exam: Mucous Membranes Moist, Normal Exam - Neck Exam Neck Exam: Full ROM, Normal Inspection. absent: Lymphadenopathy - Respiratory Exam Respiratory Exam: Clear to Ausculation Bilateral, NORMAL BREATHING PATTERN - Cardiovascular Exam Cardiovascular Exam: REGULAR RHYTHM, +S1, +S2. absent: Murmur - GI/Abdominal Exam GI & Abdominal Exam: Soft, Normal Bowel Sounds. absent: Tenderness - Rectal Exam Rectal Exam: NORMAL INSPECTION - Extremities Exam Extremities Exam: Full ROM, Normal Capillary Refill, Normal Inspection. absent : Joint Swelling, Pedal Edema - Back Exam Back Exam: NORMAL INSPECTION - Neurological Exam Neurological Exam: Alert, Awake, CN II-XII Intact, Normal Gait, Oriented x3 - Psychiatric Exam Psychiatric exam: Normal Affect, Normal Mood - Skin Skin Exam: Dry, Intact, Normal Color, Warm Assessment and Plan - Assessment and Plan (Free Text) Assessment: acute cva htn hypothyroidism Plan: continue aggressive pt/ot
[2016-12-04] MEDS: Albuterol-Ipratrop 3 mg / 0.5 (3 ml) UD INH SCH ×4 (02:05→19:19)
[2016-12-04] MEDS: Levothyroxine 25 MCG TAB PO SCH (06:54)
[2016-12-04] MEDS: Magnesium Oxide 400 mg Tab UD PO SCH ×2 (08:26→17:10)
--- NOTE | 2016-12-04 08:48 | CP.PCM.PN ---
Subjective - Date & Time of Evaluation Date of Evaluation: 12/04/16 Time of Evaluation: 08:48 - Subjective Subjective: no new clinical findings c/o cough Objective - Vital Signs/Intake and Output Vital Signs (last 24 hours): Temp Pulse Resp BP Pulse Ox 97.7 F 64 18 121/65 95 12/04/16 07:47 12/04/16 08:23 12/04/16 07:47 12/04/16 08:23 12/04/16 07:47 - Medications Medications: Current Medications Albuterol/Ipratropium (Duoneb 3 Mg/0.5 Mg (3 Ml) Ud) 3 ml INH RQ6 [facility] Last Admin: 12/04/16 07:39 Dose: 3 ml Apixaban (Eliquis) 2.5 mg PO BID [facility] PRN Reason: Protocol Last Admin: 12/04/16 08:25 Dose: 2.5 mg Aspirin (Aspirin Chewable) 81 mg PO DAILY [facility] Last Admin: 12/04/16 08:26 Dose: 81 mg Atorvastatin Calcium (Lipitor) 40 mg PO HS [facility] Last Admin: 12/03/16 21:17 Dose: 40 mg Famotidine (Pepcid) 20 mg PO DAILY [facility] Last Admin: 12/04/16 08:26 Dose: 20 mg Levothyroxine Sodium (Synthroid) 25 mcg PO DAILY@0630 [facility] Last Admin: 12/04/16 06:54 Dose: 25 mcg Magnesium Oxide (Mag-Ox) 400 mg PO BID [facility] Last Admin: 12/04/16 08:26 Dose: 400 mg Metoprolol Tartrate (Lopressor) 12.5 mg PO BID [facility] Last Admin: 12/04/16 08:23 Dose: 12.5 mg Nicotine (Nicoderm Cq) 1 patch TD DAILY [facility] Last Admin: 12/04/16 08:22 Dose: 1 patch Promethazine HCl/Dextromethorphan (Phenergan Dm Syrup) 10 ml PO Q4 PRN PRN Reason: Cough Last Admin: 12/02/16 20:28 Dose: 10 ml - Labs Labs: 11/30/16 06:15 11/30/16 06:15 - Constitutional Appears: No Acute Distress - Head Exam Head Exam: ATRAUMATIC, NORMAL INSPECTION, NORMOCEPHALIC - Eye Exam Eye Exam: EOMI, Normal appearance, PERRL Pupil Exam: NORMAL ACCOMODATION, PERRL - ENT Exam ENT Exam: Mucous Membranes Moist, Normal Exam - Neck Exam Neck Exam: Full ROM, Normal Inspection. absent: Lymphadenopathy - Respiratory Exam Respiratory Exam: Clear to Ausculation Bilateral, NORMAL BREATHING PATTERN - Cardiovascular Exam Cardiovascular Exam: REGULAR RHYTHM, +S1, +S2. absent: Murmur - GI/Abdominal Exam GI & Abdominal Exam: Soft, Normal Bowel Sounds. absent: Tenderness - Rectal Exam Rectal Exam: NORMAL INSPECTION - Extremities Exam Extremities Exam: Full ROM, Normal Capillary Refill, Normal Inspection. absent : Joint Swelling, Pedal Edema Additional comments: weakness of r arm and leg - Back Exam Back Exam: NORMAL INSPECTION - Neurological Exam Neurological Exam: Abnormal Gait, Alert, Awake, CN II-XII Intact, Oriented x3 Additional comments: slurred speech - Psychiatric Exam Psychiatric exam: Normal Affect, Normal Mood - Skin Skin Exam: Dry, Intact, Normal Color, Warm Assessment and Plan - Assessment and Plan (Free Text) Assessment: acute cva htn paroxysmal atrial fib
--- NOTE | 2016-12-04 09:59 | CP.PCM.PN ---
Subjective - Date & Time of Evaluation Date of Evaluation: 12/04/16 Time of Evaluation: 09:30 - Subjective Subjective: Pt walking in the corridor with little assistance Speech and rt arm much improved HR 68 BPN, reg BP 124/70 mm Hg No chf Pt anticoagulated Objective - Vital Signs/Intake and Output Vital Signs (last 24 hours): Temp Pulse Resp BP Pulse Ox 97.7 F 64 18 121/65 95 12/04/16 07:47 12/04/16 08:23 12/04/16 07:47 12/04/16 08:23 12/04/16 07:47 - Medications Medications: Current Medications Albuterol/Ipratropium (Duoneb 3 Mg/0.5 Mg (3 Ml) Ud) 3 ml INH RQ6 [facility] Last Admin: 12/04/16 07:39 Dose: 3 ml Apixaban (Eliquis) 2.5 mg PO BID [facility] PRN Reason: Protocol Last Admin: 12/04/16 08:25 Dose: 2.5 mg Aspirin (Aspirin Chewable) 81 mg PO DAILY [facility] Last Admin: 12/04/16 08:26 Dose: 81 mg Atorvastatin Calcium (Lipitor) 40 mg PO HS [facility] Last Admin: 12/03/16 21:17 Dose: 40 mg Famotidine (Pepcid) 20 mg PO DAILY [facility] Last Admin: 12/04/16 08:26 Dose: 20 mg Levothyroxine Sodium (Synthroid) 25 mcg PO DAILY@0630 [facility] Last Admin: 12/04/16 06:54 Dose: 25 mcg Magnesium Oxide (Mag-Ox) 400 mg PO BID [facility] Last Admin: 12/04/16 08:26 Dose: 400 mg Metoprolol Tartrate (Lopressor) 12.5 mg PO BID [facility] Last Admin: 12/04/16 08:23 Dose: 12.5 mg Nicotine (Nicoderm Cq) 1 patch TD DAILY [facility] Last Admin: 12/04/16 08:22 Dose: 1 patch Promethazine HCl/Dextromethorphan (Phenergan Dm Syrup) 10 ml PO Q4 PRN PRN Reason: Cough Last Admin: 12/02/16 20:28 Dose: 10 ml - Labs Labs: 11/30/16 06:15 11/30/16 06:15
--- NOTE | 2016-12-04 11:23 | CARD ---
APPROVED REPORT EKG Measurement Heart [id number] <Conclusion> Normal sinus rhythm Possible Left atrial enlargement Possible Anterior infarct, age undetermined Abnormal ECG
[2016-12-05] MEDS: Albuterol-Ipratrop 3 mg / 0.5 (3 ml) UD INH SCH ×4 (01:44→20:26)
[2016-12-05] MEDS: Levothyroxine 25 MCG TAB PO SCH (07:26)
[2016-12-05] MEDS: Magnesium Oxide 400 mg Tab UD PO SCH ×2 (08:29→16:42)
--- NOTE | 2016-12-05 09:20 | CP.PCM.PN ---
Subjective - Date & Time of Evaluation Date of Evaluation: 12/05/16 Time of Evaluation: 09:20 - Subjective Subjective: no new clinical findings speech rx in progress Objective - Vital Signs/Intake and Output Vital Signs (last 24 hours): Temp Pulse Resp BP Pulse Ox 98.4 F 77 22 112/64 95 12/05/16 09:00 12/05/16 09:00 12/05/16 09:00 12/05/16 09:00 12/05/16 08:24 - Medications Medications: Current Medications Albuterol/Ipratropium (Duoneb 3 Mg/0.5 Mg (3 Ml) Ud) 3 ml INH RQ6 [facility] Last Admin: 12/05/16 07:36 Dose: 3 ml Apixaban (Eliquis) 2.5 mg PO BID [facility] PRN Reason: Protocol Last Admin: 12/05/16 08:30 Dose: 2.5 mg Aspirin (Aspirin Chewable) 81 mg PO DAILY [facility] Last Admin: 12/05/16 08:29 Dose: 81 mg Atorvastatin Calcium (Lipitor) 40 mg PO HS [facility] Last Admin: 12/04/16 21:20 Dose: 40 mg Famotidine (Pepcid) 20 mg PO DAILY [facility] Last Admin: 12/05/16 08:30 Dose: 20 mg Levothyroxine Sodium (Synthroid) 25 mcg PO DAILY@0630 [facility] Last Admin: 12/05/16 07:26 Dose: 25 mcg Magnesium Oxide (Mag-Ox) 400 mg PO BID [facility] Last Admin: 12/05/16 08:29 Dose: 400 mg Metoprolol Tartrate (Lopressor) 12.5 mg PO BID [facility] Last Admin: 12/05/16 08:29 Dose: 12.5 mg Nicotine (Nicoderm Cq) 1 patch TD DAILY [facility] Last Admin: 12/05/16 08:30 Dose: 1 patch Promethazine HCl/Dextromethorphan (Phenergan Dm Syrup) 10 ml PO Q4 PRN PRN Reason: Cough Last Admin: 12/02/16 20:28 Dose: 10 ml - Labs Labs: 11/30/16 06:15 11/30/16 06:15 - Constitutional Appears: Well - Head Exam Head Exam: ATRAUMATIC, NORMAL INSPECTION, NORMOCEPHALIC - Eye Exam Eye Exam: EOMI, Normal appearance, PERRL Pupil Exam: NORMAL ACCOMODATION, PERRL - ENT Exam ENT Exam: Mucous Membranes Moist, Normal Exam - Neck Exam Neck Exam: Full ROM, Normal Inspection. absent: Lymphadenopathy - Respiratory Exam Respiratory Exam: Clear to Ausculation Bilateral, NORMAL BREATHING PATTERN - Cardiovascular Exam Cardiovascular Exam: REGULAR RHYTHM, +S1, +S2. absent: Murmur - GI/Abdominal Exam GI & Abdominal Exam: Soft, Normal Bowel Sounds. absent: Tenderness - Rectal Exam Rectal Exam: NORMAL INSPECTION - Extremities Exam Extremities Exam: Full ROM, Normal Capillary Refill, Normal Inspection. absent : Joint Swelling, Pedal Edema - Back Exam Back Exam: NORMAL INSPECTION - Neurological Exam Neurological Exam: Alert, Awake, CN II-XII Intact, Normal Gait, Oriented x3 - Psychiatric Exam Psychiatric exam: Normal Affect, Normal Mood - Skin Skin Exam: Dry, Intact, Normal Color, Warm Assessment and Plan - Assessment and Plan (Free Text) Assessment: cva htn hypothyroidism Plan: continue same rx
--- NOTE | 2016-12-05 13:15 | PSY.TMCNF ---
Nursing - Vital Signs Vital Signs (Last 8 hours): Vital Signs 12/05/16 12/05/16 12/05/16 08:24 08:29 09:00 Temperature 98.4 F 98.4 F Pulse Rate 77 77 77 Respiratory 22 22 Rate Blood Pressure 112/64 112/64 112/64 O2 Sat by Pulse 95 Oximetry Pain: 0 - Precautions: Precautions: Fall Prevention - Medications/Other Issues Comment: Pt is at low nutritional risk. Goal: 1. Pt to consume 75-100% of meals- met, continue. Follow up assessment due by 12/14/2016. - Consults Comment: Dr. Chun, Dr. Enriquez, Dr. Rodriguez - Toileting Toileting: Independent - Bladder Management Bladder Pattern: Normal Voiding Method: Toilet Bladder Management: Independent Frequency of Accidents: 0 - Bowel Management Bowel Pattern: Normal Bowel Management: Independent Frequency of Accidents: 0 - Transfers Transfers: Modified Independent - ADL's ADL's: Supervision - Patient/Family Teaching Comments: CARE POST CVA AND SAFETY PRECAUTIONS - Goals/Time Frame Comments: PER MULTIDISCIPLINARY CARE PLAN GOALS - Provider Provider: DARYL PINEDAN RN CRRN Physical Therapy - Bed Mobility Bed Mobility: Modified Independent - Transfers Wheelchair to Mat: Modified Independent Sit to Stand: Modified Independent - Ambulation Level of Assistance: Supervision Distance (ft.): 300 Assistive Devices: N/A Comment: -300 feet, level surface, no device, distant supervision. - demonstrates instances of lateral sway with LOB but able to self correct with mod I with use of steppage strategy or UE guarding motion. -mod I with ambulation around room. -demonstrates some ataxia as noted with RLE with some steps with impaired placement - Stair Negotiation Stairs: Level of Assistance: Modified Independent, Supervision Handrails: Right Stairs: Assistive Devices: Right Handrail Comment: -1 flight of 8 inch steps. -R rail on ascent, L rail on descent. - utilization of step to pattern. -requires cues for sequencing and to recall to ascend with LLE and descend with RLE. -when ascends with RLE patient has B buckling due to impaired neuro-motor control and when descends with LLE poor eccentric control of LE - Standing Balance Static Stand: Modified [place] with assistive device Dynamic Stand: Supervision, Contact Guard Assist - Pain Pain (assessed during therapy session): 0 - Insight/Carryover Insight/Carryover: Good - Patient/Family Education Comment: safety, therapy schedule, smoking cessation, discharge plan, home modification recommendations, mobility, kinesio-taping, postural re-education, energy conservation. -family training completed with sister on 12/04/16 - Assessment/Plan Assessment: Ms. Morales continues to make great progress in therapies. Patient is able to ambulate with distant supervision and deficits remain in high level dynamic balance, endurance and postural control. Patient requires cues on stair negotiation to recall sequencing. Patient is making good progress towards long-term goals; family training completed today with sister. PT recommends continued skilled therapy services to maximize safety and independence with all mobility prior to home discharge with intermittent supervision of family and outpatient PT services. - Goals Timeframe: 7 days Goals: Mod I x 2 flights of steps with step to pattern without cue for safe sequencing. I x 1000 feet on all surfaces. I with all transfers without device including car and floor to stand. I with all bed/mat mobility - Provider Therapist: Siomara Haas PT, DPT License Number: [id number] Occupational Therapy - Arousal/Attention/Orientation Patient Orientation: Person, Place, Time, Appropriate to Age, Appropriate to Situation - ADL/IADL Self Feeding: Independent Grooming: Independent Dressing-Upper Extremity: Supervision Dressing-Lower Extremity: Supervision - Sitting Balance Static Sitting: Independent without upper extremity support Dynamic Sitting: Reaches across midline, Reaches out of base of support, Reaches within base of support - Transfers Wheelchair to Bed Transfers: Modified Independent Toilet Transfers: Modified Independent Tub Transfers: Supervision - Wheelchair Management Level of Assistance: Not Applicable - Upper Extremity Status Right Upper Extremity Comment: ROM WFL, MMT impaired shoulder flexion, impaired dexterity Left Upper Extremity Comment: ROM and MMT WFL - Pain Pain (assessed during therapy session): 0 - Insight/Carryover Insight/Carryover: Good - Patient/Family Education Comment: safety, therapy schedule, smoking cessation, discharge plan, home modification recommendations, mobility, kinesio-taping, postural re-education, energy conservation. -family training completed with sister on 12/04/16 - Assessment/Plan Assessment: Ms. Morales continues to make great progress in therapies. Patient is able to ambulate with distant supervision and deficits remain in high level dynamic balance, endurance and postural control. Patient requires cues on stair negotiation to recall sequencing. 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 PT recommends continued skilled therapy services to maximize safety and independence with all mobility prior to home discharge with intermittent supervision of family and outpatient PT services. - Goals Timeframe: 7 days Goals: Mod I x 2 flights of steps with step to pattern without cue for safe sequencing. I x 1000 feet on all surfaces. I with all transfers without device including car and floor to stand. I with all bed/mat mobility - Provider Therapist: Rima Queen License Number: [id number] Speech Therapy - Consult Information Patient on Program: Yes Medical Diagnosis: CVA Treatment Diagnosis: mild receptive/expressive aphasia and memory deficits - Assessment Expressive Language Impairment: Mild Receptive Language Impairment: Mild Memory Impairment: Mild Speech/Articulation Impairment: Mild - Plan Assessment: Ms. Morales continues to make great progress in therapies. Patient is able to ambulate with distant supervision and deficits remain in high level dynamic balance, endurance and postural control. Patient requires cues on stair negotiation to recall sequencing. Patient is making good progress towards long-term goals; family training completed today with sister. PT recommends continued skilled therapy services to maximize safety and independence with all mobility prior to home discharge with intermittent supervision of family and outpatient PT services. - Provider Therapist: Justina Elena License Number: [id number] Recreational Therapy - Assessment Assessment/Plan: Ms. Morales continues to make great progress in therapies. Patient is able to ambulate with distant supervision and deficits remain in high level dynamic balance, endurance and postural control. Patient requires cues on stair negotiation to recall sequencing. Patient is making good progress towards long-term goals; family training completed today with sister. PT recommends continued skilled therapy services to maximize safety and independence with all mobility prior to home discharge with intermittent supervision of family and outpatient PT services. Nutrition - Current Diet Current Diet/ Supplement/ Feedings: Heart healthy diet - Appetite Percent Meal Consumed: 75-100% - Comments Comments: CARE POST CVA AND SAFETY PRECAUTIONS - Assessment/Goals/Time Frame Assessment/Goals/Time Frame: Pt is at low nutritional risk. Goal: 1. Pt to consume 75-100% of meals- met, continue. Follow up assessment due by 12/14/2016. - Provider Provider: Angle Guardado MS, RD Case Management - Psychosocial Assessment Support Systems: Sister Silva [phone] is retired and lives on 2nd level; pt resides on 1st floor Psychological Interventions/Needs: Pt is alert and oriented x3, has mild memory deficits Discharge Concerns: Pt lives alone; Sister will likely be more involved in assisting pt given memory impairments Patient/Family Meeting: CM met with pt as well as rehab team (Also met wiht pt' s sister Silva with pt's consent) Intervention/Goal/Outcome:: 1. Plan: Tentative discharge scheduled for 12/10/16 home with outpatient therapy (Scheduled for 12/12/16 at [facility] outpatient therapy: OT at 1PM, ST at 2PM, and PT at 3PM); Will schedule for neuro and PMD follow up 2. GOAL: Intermittent supervision level overall - Discharge Plan Discharge Plan: Outpatient rehab - Provider Provider: GENE Tejeda, F[employer]O [employer] OPERATOR License Number: [id number] Rehabilitation Plan - Treatment Plan Treatment Plan: Physical Therapy, Occupational Therapy, Speech, Dietary, Patient /Family Education - Discharge Plan Estimated Date of Discharge: 12/09/16 Discharge to: Home
--- NOTE | 2016-12-05 13:32 | CP.PCM.PN ---
Subjective - Date & Time of Evaluation Date of Evaluation: 12/05/16 Time of Evaluation: 13:05 - Subjective Subjective: C/O dizziness today AM Now feels Okay. HR 78 BPM, irreg BP 110/70 mm Hg No rales or gallop Will get an EKG Pt on Metoprolol for rate control and Eliquis for prevention of stroke Will get an EKG Objective - Vital Signs/Intake and Output Vital Signs (last 24 hours): Temp Pulse Resp BP Pulse Ox 98.4 F 77 22 112/64 95 12/05/16 09:00 12/05/16 09:00 12/05/16 09:00 12/05/16 09:00 12/05/16 08:24 - Medications Medications: Current Medications Albuterol/Ipratropium (Duoneb 3 Mg/0.5 Mg (3 Ml) Ud) 3 ml INH RQ6 [facility] Last Admin: 12/05/16 07:36 Dose: 3 ml Apixaban (Eliquis) 2.5 mg PO BID [facility] PRN Reason: Protocol Last Admin: 12/05/16 08:30 Dose: 2.5 mg Aspirin (Aspirin Chewable) 81 mg PO DAILY [facility] Last Admin: 12/05/16 08:29 Dose: 81 mg Atorvastatin Calcium (Lipitor) 40 mg PO HS [facility] Last Admin: 12/04/16 21:20 Dose: 40 mg Famotidine (Pepcid) 20 mg PO DAILY [facility] Last Admin: 12/05/16 08:30 Dose: 20 mg Levothyroxine Sodium (Synthroid) 25 mcg PO DAILY@0630 [facility] Last Admin: 12/05/16 07:26 Dose: 25 mcg Magnesium Oxide (Mag-Ox) 400 mg PO BID [facility] Last Admin: 12/05/16 08:29 Dose: 400 mg Metoprolol Tartrate (Lopressor) 12.5 mg PO BID [facility] Last Admin: 12/05/16 08:29 Dose: 12.5 mg Nicotine (Nicoderm Cq) 1 patch TD DAILY [facility] Last Admin: 12/05/16 08:30 Dose: 1 patch Promethazine HCl/Dextromethorphan (Phenergan Dm Syrup) 10 ml PO Q4 PRN PRN Reason: Cough Last Admin: 12/02/16 20:28 Dose: 10 ml - Labs Labs: 11/30/16 06:15 11/30/16 06:15
--- NOTE | 2016-12-05 17:43 | CP.PCM.PN ---
Subjective - Date & Time of Evaluation Date of Evaluation: 12/05/16 Time of Evaluation: 17:42 - Subjective Subjective: Patient seen in room doing well had an brief episode of dizziness, feeling ok no diaphoresis had been very active today continue with current care set for d/c 12/09/16 has made great gains Objective - Vital Signs/Intake and Output Vital Signs (last 24 hours): Temp Pulse Resp BP Pulse Ox 98.4 F 72 22 145/59 L 97 12/05/16 09:00 12/05/16 16:42 12/05/16 09:00 12/05/16 16:42 12/05/16 16:30 - Medications Medications: Current Medications Albuterol/Ipratropium (Duoneb 3 Mg/0.5 Mg (3 Ml) Ud) 3 ml INH RQ6 [facility] Last Admin: 12/05/16 13:48 Dose: 3 ml Apixaban (Eliquis) 2.5 mg PO BID [facility] PRN Reason: Protocol Last Admin: 12/05/16 16:43 Dose: 2.5 mg Aspirin (Aspirin Chewable) 81 mg PO DAILY [facility] Last Admin: 12/05/16 08:29 Dose: 81 mg Atorvastatin Calcium (Lipitor) 40 mg PO HS [facility] Last Admin: 12/04/16 21:20 Dose: 40 mg Famotidine (Pepcid) 20 mg PO DAILY [facility] Last Admin: 12/05/16 08:30 Dose: 20 mg Levothyroxine Sodium (Synthroid) 25 mcg PO DAILY@0630 [facility] Last Admin: 12/05/16 07:26 Dose: 25 mcg Magnesium Oxide (Mag-Ox) 400 mg PO BID [facility] Last Admin: 12/05/16 16:42 Dose: 400 mg Metoprolol Tartrate (Lopressor) 12.5 mg PO BID [facility] Last Admin: 12/05/16 16:42 Dose: 12.5 mg Nicotine (Nicoderm Cq) 1 patch TD DAILY [facility] Last Admin: 12/05/16 08:30 Dose: 1 patch Promethazine HCl/Dextromethorphan (Phenergan Dm Syrup) 10 ml PO Q4 PRN PRN Reason: Cough Last Admin: 12/02/16 20:28 Dose: 10 ml - Labs Labs: 11/30/16 06:15 11/30/16 06:15
[2016-12-05] MEDS: Promethazine DM 12.5 mg-30 mg/10 ml Syrup PO PRN (21:03)
[2016-12-06] MEDS: Albuterol-Ipratrop 3 mg / 0.5 (3 ml) UD INH SCH ×4 (02:09→21:17)
[2016-12-06] MEDS: Levothyroxine 25 MCG TAB PO SCH (06:06)
[2016-12-06] MEDS: Magnesium Oxide 400 mg Tab UD PO SCH ×2 (08:13→16:14)
--- NOTE | 2016-12-06 08:30 | CARD ---
APPROVED REPORT EKG Measurement Heart [id number] <Conclusion> Atrial fibrillation Nonspecific T wave abnormality Abnormal ECG
--- NOTE | 2016-12-06 10:32 | CP.PCM.PN ---
Subjective - Date & Time of Evaluation Date of Evaluation: 12/06/16 Time of Evaluation: 10:00 - Subjective Subjective: Asymptomatic over night HR 74 BPM/Irreg BP 116/70 mm Hg No signs of CHF Instructed nurses to continue PT Objective - Vital Signs/Intake and Output Vital Signs (last 24 hours): Temp Pulse Resp BP Pulse Ox 98.6 F 63 20 116/59 L 95 12/06/16 08:02 12/06/16 08:12 12/06/16 08:02 12/06/16 08:12 12/06/16 08:02 - Medications Medications: Current Medications Albuterol/Ipratropium (Duoneb 3 Mg/0.5 Mg (3 Ml) Ud) 3 ml INH RQ6 [facility] Last Admin: 12/06/16 07:34 Dose: 3 ml Apixaban (Eliquis) 2.5 mg PO BID [facility] PRN Reason: Protocol Last Admin: 12/06/16 08:13 Dose: 2.5 mg Aspirin (Aspirin Chewable) 81 mg PO DAILY [facility] Last Admin: 12/06/16 08:13 Dose: 81 mg Atorvastatin Calcium (Lipitor) 40 mg PO HS [facility] Last Admin: 12/05/16 21:03 Dose: 40 mg Famotidine (Pepcid) 20 mg PO DAILY [facility] Last Admin: 12/06/16 08:13 Dose: 20 mg Levothyroxine Sodium (Synthroid) 25 mcg PO DAILY@0630 [facility] Last Admin: 12/06/16 06:06 Dose: 25 mcg Magnesium Oxide (Mag-Ox) 400 mg PO BID [facility] Last Admin: 12/06/16 08:13 Dose: 400 mg Metoprolol Tartrate (Lopressor) 12.5 mg PO BID [facility] Last Admin: 12/06/16 08:12 Dose: Not Given Nicotine (Nicoderm Cq) 1 patch TD DAILY [facility] Last Admin: 12/06/16 08:13 Dose: 1 patch Promethazine HCl/Dextromethorphan (Phenergan Dm Syrup) 10 ml PO Q4 PRN PRN Reason: Cough Last Admin: 12/05/16 21:03 Dose: 10 ml - Labs Labs: 11/30/16 06:15 11/30/16 06:15
--- NOTE | 2016-12-06 11:28 | CP.PCM.PN ---
Subjective - Date & Time of Evaluation Date of Evaluation: 12/06/16 Time of Evaluation: 11:28 - Subjective Subjective: clinically improving r hemipareses improved speech better lungs-clear heart-s1s2 imp-acute cva paroxysmal a.fib hypothyroidism hyperlipidemia plan-repeat labs in am continue same rx Objective - Vital Signs/Intake and Output Vital Signs (last 24 hours): Temp Pulse Resp BP Pulse Ox 98.6 F 63 20 116/59 L 95 12/06/16 08:02 12/06/16 08:12 12/06/16 08:02 12/06/16 08:12 12/06/16 08:02 - Medications Medications: Current Medications Albuterol/Ipratropium (Duoneb 3 Mg/0.5 Mg (3 Ml) Ud) 3 ml INH RQ6 [facility] Last Admin: 12/06/16 07:34 Dose: 3 ml Apixaban (Eliquis) 2.5 mg PO BID [facility] PRN Reason: Protocol Last Admin: 12/06/16 08:13 Dose: 2.5 mg Aspirin (Aspirin Chewable) 81 mg PO DAILY [facility] Last Admin: 12/06/16 08:13 Dose: 81 mg Atorvastatin Calcium (Lipitor) 40 mg PO HS [facility] Last Admin: 12/05/16 21:03 Dose: 40 mg Famotidine (Pepcid) 20 mg PO DAILY [facility] Last Admin: 12/06/16 08:13 Dose: 20 mg Levothyroxine Sodium (Synthroid) 25 mcg PO DAILY@0630 [facility] Last Admin: 12/06/16 06:06 Dose: 25 mcg Magnesium Oxide (Mag-Ox) 400 mg PO BID [facility] Last Admin: 12/06/16 08:13 Dose: 400 mg Metoprolol Tartrate (Lopressor) 12.5 mg PO BID [facility] Last Admin: 12/06/16 08:12 Dose: Not Given Nicotine (Nicoderm Cq) 1 patch TD DAILY [facility] Last Admin: 12/06/16 08:13 Dose: 1 patch Promethazine HCl/Dextromethorphan (Phenergan Dm Syrup) 10 ml PO Q4 PRN PRN Reason: Cough Last Admin: 12/05/16 21:03 Dose: 10 ml - Labs Labs: 11/30/16 06:15 11/30/16 06:15
[2016-12-07] MEDS: Albuterol-Ipratrop 3 mg / 0.5 (3 ml) UD INH SCH ×4 (01:01→19:16)
[2016-12-07 05:41] LABS: HEMATOCRIT 34.8 % (34.0-47.0); MEAN CELL VOLUME 107.5 fl (81.0-99.0); MEAN CORPUSCULAR HEMOGLOBIN 35.3 pg (27.0-31.0); MEAN CORPUSCULAR HGB CONC 32.9 g/dL (33.0-37.0); RED CELL DISTRIBUTION WIDTH 13.3 % (11.5-14.5); WHITE BLOOD COUNT 6.5 K/uL (4.8-10.8)
[2016-12-07 06:08] LABS: ALB/GLOB RATIO 1.2 (1.0-2.1); ALKALINE PHOSPHATASE 47 U/L (38-126); ALT/SGPT 33 U/L (9-52); AST/SGOT 24 U/L (14-36); BILIRUBIN,TOTAL 0.5 mg/dl (0.2-1.3); BLOOD UREA NITROGEN 14 mg/dl (7-17); CARBON DIOXIDE 26 mmol/L (22-30); CHLORIDE 108 mmol/L (98-107); GFR AFRICAN-AMERICAN > 60; GLUCOSE,RANDOM 106 mg/dL (65-105); POTASSIUM 4.4 MMOL/L (3.6-5.0); SODIUM 142 mmol/l (132-148); TOTAL PROTEIN 6.3 G/DL (6.3-8.2)
[2016-12-07 06:22] LABS: T4 7.93 ug/dl (5.5-11.0)
[2016-12-07] MEDS: Levothyroxine 25 MCG TAB PO SCH (06:26)
[2016-12-07 06:35] LABS: THYROID STIMULATING HORMONE 5.78 mIU/ML (0.46-4.68)
[2016-12-07] MEDS: Magnesium Oxide 400 mg Tab UD PO SCH ×2 (08:42→17:03)
--- NOTE | 2016-12-07 09:16 | CP.PCM.PN ---
Subjective - Date & Time of Evaluation Date of Evaluation: 12/07/16 Time of Evaluation: 09:15 - Subjective Subjective: no complaints or apparent distress Objective - Vital Signs/Intake and Output Vital Signs (last 24 hours): Temp Pulse Resp BP Pulse Ox 97.9 F 59 L 20 124/89 95 12/06/16 21:38 12/07/16 08:41 12/06/16 21:38 12/07/16 08:41 12/06/16 21:38 - Medications Medications: Current Medications Albuterol/Ipratropium (Duoneb 3 Mg/0.5 Mg (3 Ml) Ud) 3 ml INH RQ6 [facility] Last Admin: 12/07/16 07:38 Dose: 3 ml Apixaban (Eliquis) 2.5 mg PO BID [facility] PRN Reason: Protocol Last Admin: 12/07/16 08:42 Dose: 2.5 mg Aspirin (Aspirin Chewable) 81 mg PO DAILY [facility] Last Admin: 12/07/16 08:42 Dose: 81 mg Atorvastatin Calcium (Lipitor) 40 mg PO HS [facility] Last Admin: 12/06/16 21:37 Dose: 40 mg Famotidine (Pepcid) 20 mg PO DAILY [facility] Last Admin: 12/07/16 08:42 Dose: 20 mg Levothyroxine Sodium (Synthroid) 25 mcg PO DAILY@0630 [facility] Last Admin: 12/07/16 06:26 Dose: 25 mcg Magnesium Oxide (Mag-Ox) 400 mg PO BID [facility] Last Admin: 12/07/16 08:42 Dose: 400 mg Metoprolol Tartrate (Lopressor) 12.5 mg PO BID [facility] Last Admin: 12/07/16 08:41 Dose: 12.5 mg Nicotine (Nicoderm Cq) 1 patch TD DAILY [facility] Last Admin: 12/07/16 08:41 Dose: 1 patch Promethazine HCl/Dextromethorphan (Phenergan Dm Syrup) 10 ml PO Q4 PRN PRN Reason: Cough Last Admin: 12/05/16 21:03 Dose: 10 ml - Labs Labs: 12/07/16 05:35 12/07/16 05:35 - Constitutional Appears: No Acute Distress - Head Exam Head Exam: ATRAUMATIC, NORMAL INSPECTION, NORMOCEPHALIC - Eye Exam Eye Exam: EOMI, Normal appearance, PERRL Pupil Exam: NORMAL ACCOMODATION, PERRL - ENT Exam ENT Exam: Mucous Membranes Moist, Normal Exam - Neck Exam Neck Exam: Full ROM, Normal Inspection. absent: Lymphadenopathy - Respiratory Exam Respiratory Exam: Clear to Ausculation Bilateral, NORMAL BREATHING PATTERN - Cardiovascular Exam Cardiovascular Exam: REGULAR RHYTHM, +S1, +S2. absent: Murmur - GI/Abdominal Exam GI & Abdominal Exam: Soft, Normal Bowel Sounds. absent: Tenderness - Rectal Exam Rectal Exam: NORMAL INSPECTION - Extremities Exam Extremities Exam: Full ROM, Normal Capillary Refill, Normal Inspection. absent : Joint Swelling, Pedal Edema - Back Exam Back Exam: NORMAL INSPECTION - Neurological Exam Neurological Exam: Alert, Awake, CN II-XII Intact, Normal Gait, Oriented x3 - Psychiatric Exam Psychiatric exam: Normal Affect, Normal Mood - Skin Skin Exam: Dry, Intact, Normal Color, Warm Assessment and Plan - Assessment and Plan (Free Text) Assessment: acute cva hypothyroidism arrythmias Plan: continue present rx labs reviewed
[2016-12-08] MEDS: Albuterol-Ipratrop 3 mg / 0.5 (3 ml) UD INH SCH ×4 (02:00→19:57)
[2016-12-08] MEDS: Levothyroxine 25 MCG TAB PO SCH (06:50)
[2016-12-08] MEDS: Magnesium Oxide 400 mg Tab UD PO SCH ×2 (08:26→16:24)
--- NOTE | 2016-12-08 13:01 | CP.PCM.PN ---
Subjective - Date & Time of Evaluation Date of Evaluation: 12/08/16 Time of Evaluation: 13:01 - Subjective Subjective: FEELS BETTER SCHEDULED FOR D/C HOME IN AM Objective - Vital Signs/Intake and Output Vital Signs (last 24 hours): Temp Pulse Resp BP Pulse Ox 97 F L 60 20 113/77 98 12/08/16 09:44 12/08/16 09:44 12/08/16 09:44 12/08/16 09:44 12/08/16 09:44 - Medications Medications: Current Medications Albuterol/Ipratropium (Duoneb 3 Mg/0.5 Mg (3 Ml) Ud) 3 ml INH RQ6 [facility] Last Admin: 12/08/16 08:09 Dose: 3 ml Apixaban (Eliquis) 2.5 mg PO BID [facility] PRN Reason: Protocol Last Admin: 12/08/16 08:26 Dose: 2.5 mg Aspirin (Aspirin Chewable) 81 mg PO DAILY [facility] Last Admin: 12/08/16 08:26 Dose: 81 mg Atorvastatin Calcium (Lipitor) 40 mg PO HS [facility] Last Admin: 12/07/16 21:18 Dose: 40 mg Famotidine (Pepcid) 20 mg PO DAILY [facility] Last Admin: 12/08/16 08:26 Dose: 20 mg Levothyroxine Sodium (Synthroid) 25 mcg PO DAILY@0630 [facility] Last Admin: 12/08/16 06:50 Dose: 25 mcg Magnesium Oxide (Mag-Ox) 400 mg PO BID [facility] Last Admin: 12/08/16 08:26 Dose: 400 mg Metoprolol Tartrate (Lopressor) 12.5 mg PO BID [facility] Last Admin: 12/08/16 08:26 Dose: 12.5 mg Nicotine (Nicoderm Cq) 1 patch TD DAILY [facility] Last Admin: 12/08/16 08:26 Dose: 1 patch Promethazine HCl/Dextromethorphan (Phenergan Dm Syrup) 10 ml PO Q4 PRN PRN Reason: Cough Last Admin: 12/05/16 21:03 Dose: 10 ml - Labs Labs: 12/07/16 05:35 12/07/16 05:35 - Constitutional Appears: No Acute Distress - Head Exam Head Exam: ATRAUMATIC, NORMAL INSPECTION, NORMOCEPHALIC - Eye Exam Eye Exam: EOMI, Normal appearance, PERRL Pupil Exam: NORMAL ACCOMODATION, PERRL - ENT Exam ENT Exam: Mucous Membranes Moist, Normal Exam - Neck Exam Neck Exam: Full ROM, Normal Inspection. absent: Lymphadenopathy - Respiratory Exam Respiratory Exam: Clear to Ausculation Bilateral, NORMAL BREATHING PATTERN - Cardiovascular Exam Cardiovascular Exam: REGULAR RHYTHM, +S1, +S2. absent: Murmur - GI/Abdominal Exam GI & Abdominal Exam: Soft, Normal Bowel Sounds. absent: Tenderness - Rectal Exam Rectal Exam: NORMAL INSPECTION - Extremities Exam Extremities Exam: Full ROM, Normal Capillary Refill, Normal Inspection. absent : Joint Swelling, Pedal Edema - Back Exam Back Exam: NORMAL INSPECTION - Neurological Exam Neurological Exam: Alert, Awake, CN II-XII Intact, Normal Gait, Oriented x3 - Psychiatric Exam Psychiatric exam: Normal Affect, Normal Mood - Skin Skin Exam: Dry, Intact, Normal Color, Warm Assessment and Plan - Assessment and Plan (Free Text) Assessment: ACUTE CVA HYPOTHYROIDISM HTN ARRYTHMIAS Plan: CONTINUE CURRENT RX FOLLOW UP WITH DR DISLA OUT PT
--- NOTE | 2016-12-08 14:04 | CP.PCM.PN ---
Subjective - Date & Time of Evaluation Date of Evaluation: 12/08/16 Time of Evaluation: 11:00 - Subjective Subjective: no acute complaints at present Objective - Vital Signs/Intake and Output Vital Signs (last 24 hours): Temp Pulse Resp BP Pulse Ox 97 F L 60 20 113/77 98 12/08/16 09:44 12/08/16 09:44 12/08/16 09:44 12/08/16 09:44 12/08/16 09:44 - Medications Medications: Current Medications Albuterol/Ipratropium (Duoneb 3 Mg/0.5 Mg (3 Ml) Ud) 3 ml INH RQ6 [facility] Last Admin: 12/08/16 13:45 Dose: 3 ml Apixaban (Eliquis) 2.5 mg PO BID [facility] PRN Reason: Protocol Last Admin: 12/08/16 08:26 Dose: 2.5 mg Aspirin (Aspirin Chewable) 81 mg PO DAILY [facility] Last Admin: 12/08/16 08:26 Dose: 81 mg Atorvastatin Calcium (Lipitor) 40 mg PO HS [facility] Last Admin: 12/07/16 21:18 Dose: 40 mg Famotidine (Pepcid) 20 mg PO DAILY [facility] Last Admin: 12/08/16 08:26 Dose: 20 mg Levothyroxine Sodium (Synthroid) 25 mcg PO DAILY@0630 [facility] Last Admin: 12/08/16 06:50 Dose: 25 mcg Magnesium Oxide (Mag-Ox) 400 mg PO BID [facility] Last Admin: 12/08/16 08:26 Dose: 400 mg Metoprolol Tartrate (Lopressor) 12.5 mg PO BID [facility] Last Admin: 12/08/16 08:26 Dose: 12.5 mg Nicotine (Nicoderm Cq) 1 patch TD DAILY [facility] Last Admin: 12/08/16 08:26 Dose: 1 patch Promethazine HCl/Dextromethorphan (Phenergan Dm Syrup) 10 ml PO Q4 PRN PRN Reason: Cough Last Admin: 12/05/16 21:03 Dose: 10 ml - Labs Labs: 12/07/16 05:35 12/07/16 05:35 - Head Exam Head Exam: ATRAUMATIC, NORMAL INSPECTION, NORMOCEPHALIC - Eye Exam Eye Exam: EOMI, Normal appearance, PERRL Pupil Exam: NORMAL ACCOMODATION - ENT Exam ENT Exam: Mucous Membranes Moist, Normal Exam - Neck Exam Neck Exam: Full ROM - Respiratory Exam Respiratory Exam: Clear to Ausculation Bilateral, NORMAL BREATHING PATTERN - Cardiovascular Exam Cardiovascular Exam: REGULAR RHYTHM - GI/Abdominal Exam GI & Abdominal Exam: Normal Bowel Sounds - Rectal Exam Rectal Exam: NORMAL INSPECTION - Exam External exam: NORMAL EXTERNAL EXAM - Extremities Exam Extremities Exam: Full ROM, Normal Capillary Refill - Back Exam Back Exam: NORMAL INSPECTION - Neurological Exam Neurological Exam: Alert, Awake Neuro motor strength exam: Left Upper Extremity: 3, Right Upper Extremity: 3, Left Lower Extremity: 3, Right Lower Extremity: 2/1 - Psychiatric Exam Psychiatric exam: Normal Affect, Normal Mood - Skin Skin Exam: Dry, Intact Assessment and Plan (1) CVA (cerebral vascular accident) Assessment & Plan: to continue with physical, occupational and rec therapy covering for Dr Rodriguez Status: Acute (2) Cough Status: Acute (3) History of atrial fibrillation Status: Acute (4) Occupational exposure in workplace Status: Acute (5) Sciatica Status: Acute (6) CAD (coronary artery disease) Status: Chronic (7) History of hypertension Status: Chronic (8) History of hypothyroidism Status: Chronic
[2016-12-08 15:44] VITALS: RESP 20
[2016-12-09] MEDS: Albuterol-Ipratrop 3 mg / 0.5 (3 ml) UD INH SCH ×2 (02:03→07:25)
[2016-12-09] MEDS: Levothyroxine 25 MCG TAB PO SCH (06:33)
[2016-12-09 08:01] VITALS: BP 115/56; PULSE 59; TEMP 97.5; O2SAT 95
[2016-12-09] MEDS: Magnesium Oxide 400 mg Tab UD PO SCH (08:23)
--- NOTE | 2016-12-09 10:03 | CP.PCM.PN ---
Subjective - Date & Time of Evaluation Date of Evaluation: 12/09/16 Time of Evaluation: 09:40 - Subjective Subjective: Scheduled for D/C today Has dressed herself unassisted Uses BR independently Has regained speech fairly well Still in A Fib at 74 BPM/BP 116/74 mm Hg No signs of CHF Going home on oral anticoagulation anf Beta blockade Will see Dr. Marcano in couple of wks and see me in a month. Objective - Vital Signs/Intake and Output Vital Signs (last 24 hours): Temp Pulse Resp BP Pulse Ox 97.5 F L 59 L 20 115/56 L 95 12/09/16 08:01 12/09/16 08:23 12/09/16 08:01 12/09/16 08:23 12/09/16 08:01 - Medications Medications: Current Medications Albuterol/Ipratropium (Duoneb 3 Mg/0.5 Mg (3 Ml) Ud) 3 ml INH RQ6 [facility] Last Admin: 12/09/16 07:25 Dose: 3 ml Apixaban (Eliquis) 2.5 mg PO BID [facility] PRN Reason: Protocol Last Admin: 12/09/16 08:23 Dose: 2.5 mg Aspirin (Aspirin Chewable) 81 mg PO DAILY [facility] Last Admin: 12/09/16 08:23 Dose: 81 mg Atorvastatin Calcium (Lipitor) 40 mg PO HS [facility] Last Admin: 12/08/16 21:29 Dose: 40 mg Famotidine (Pepcid) 20 mg PO DAILY [facility] Last Admin: 12/09/16 08:23 Dose: 20 mg Levothyroxine Sodium (Synthroid) 25 mcg PO DAILY@0630 [facility] Last Admin: 12/09/16 06:33 Dose: 25 mcg Magnesium Oxide (Mag-Ox) 400 mg PO BID [facility] Last Admin: 12/09/16 08:23 Dose: 400 mg Metoprolol Tartrate (Lopressor) 12.5 mg PO BID [facility] Last Admin: 12/09/16 08:23 Dose: Not Given Nicotine (Nicoderm Cq) 1 patch TD DAILY [facility] Last Admin: 12/09/16 08:23 Dose: 1 patch Promethazine HCl/Dextromethorphan (Phenergan Dm Syrup) 10 ml PO Q4 PRN PRN Reason: Cough Last Admin: 12/05/16 21:03 Dose: 10 ml - Labs Labs: 12/07/16 05:35 12/07/16 05:35
--- NOTE | 2016-12-09 10:07 | CP.PCM.DIS ---
Provider - Provider Date of Admission: 11/28/16 20:51 Attending physician: Jad Disla MD Time Spent in preparation of Discharge (in minutes): 30 Diagnosis - Discharge Diagnosis (1) CVA (cerebral vascular accident) Status: Acute Priority: High (2) Cough Status: Acute (3) History of atrial fibrillation Status: Acute (4) History of hypertension Status: Chronic (5) History of hypothyroidism Status: Chronic Hospital Course - Lab Results Lab Results: Most Recent Lab Values WBC 6.5 K/uL (4.8-10.8) 12/07/16 05:35 RBC 3.24 Mil/uL (3.80-5.20) L 12/07/16 05:35 Hgb 11.4 g/dL (12.0-16.0) L 12/07/16 05:35 Hct 34.8 % (34.0-47.0) 12/07/16 05:35 MCV 107.5 fl (81.0-99.0) H 12/07/16 05:35 MCH 35.3 pg (27.0-31.0) H 12/07/16 05:35 MCHC 32.9 g/dL (33.0-37.0) L 12/07/16 05:35 RDW 13.3 % (11.5-14.5) 12/07/16 05:35 Plt Count 175 K/uL (130-400) 12/07/16 05:35 Sodium 142 mmol/l (132-148) 12/07/16 05:35 Potassium 4.4 MMOL/L (3.6-5.0) 12/07/16 05:35 Chloride 108 mmol/L (98-107) H 12/07/16 05:35 Carbon Dioxide 26 mmol/L (22-30) 12/07/16 05:35 Anion Gap 12 (10-20) 12/07/16 05:35 BUN 14 mg/dl (7-17) 12/07/16 05:35 Creatinine 1.0 mg/dL (0.7-1.2) 12/07/16 05:35 Est GFR ( Amer) > 60 12/07/16 05:35 Est GFR (Non-Af Amer) 56 12/07/16 05:35 Random Glucose 106 mg/dL (65-105) H 12/07/16 05:35 Calcium 9.0 mg/dL (8.4-10.2) 12/07/16 05:35 Total Bilirubin 0.5 mg/dl (0.2-1.3) 12/07/16 05:35 AST 24 U/L (14-36) 12/07/16 05:35 ALT 33 U/L (9-52) 12/07/16 05:35 Alkaline Phosphatase 47 U/L (38-126) 12/07/16 05:35 Total Protein 6.3 G/DL (6.3-8.2) 12/07/16 05:35 Albumin 3.5 g/dL (3.5-5.0) 12/07/16 05:35 Globulin 2.8 gm/dL (2.2-3.9) 12/07/16 05:35 Albumin/Globulin Ratio 1.2 (1.0-2.1) 12/07/16 05:35 Triglycerides 94 mg/DL (0-149) 11/30/16 06:15 Cholesterol 141 mg/dL (0-199) 11/30/16 06:15 LDL Cholesterol Direct 80 mg/dL (0-129) 11/30/16 06:15 HDL Cholesterol 41 MG/DL (30-70) 11/30/16 06:15 Thyroxine (T4) 7.93 ug/dl (5.5-11.0) 12/07/16 05:35 TSH 3rd Generation 5.78 mIU/ML (0.46-4.68) H 12/07/16 05:35 - Hospital Course Hospital Course: CLINICALLY STABLE R ARM AND LEG WEAKNESS IMPROVED SPEECH IMPROVED Discharge Exam - Head Exam Head Exam: ATRAUMATIC, NORMAL INSPECTION, NORMOCEPHALIC - Eye Exam Eye Exam: EOMI, Normal appearance, PERRL Pupil Exam: NORMAL ACCOMODATION, PERRL - GI/Abdominal Exam GI & Abdominal Exam: Normal Bowel Sounds - Rectal Exam Rectal Exam: NORMAL INSPECTION - Neurological Exam Neurological exam: Alert, CN II-XII Intact, Normal Gait, Oriented x3, Reflexes Normal Additional comments: SPEECH AND MOTOR FUNCTION IMPROVED - Psychiatric Exam Psychiatric exam: Normal Affect, Normal Mood - Skin Skin Exam: Dry, Intact, Normal Color, Warm Discharge Plan - Follow Up Plan Condition: GOOD Disposition: HOME/ ROUTINE Patient education suggested?: Yes Additional Instructions: FOLLOW UP WITH MILTON DISLA AND ROSEMARIE
== END 2016-12-09 11:25 | disposition home or self-care (01) | DRG 57 ==
PROVIDERS: ADMIT Internal Medicine Pulmonary Disease; ATTEND Internal Medicine Pulmonary Disease
PROC: 3E0F7GC Introduction of Other Therapeutic Substance into Respiratory Tract, Via Natural or Artificial Opening (ICD-10-PCS; principal; 2016-11-28)
PROC: F07M6FZ Therapeutic Exercise Treatment of Musculoskeletal System - Whole Body using Assistive, Adaptive, Supportive or Protective Equipment (ICD-10-PCS; 2016-11-29)
PROC: F08Z4FZ Home Management Treatment using Assistive, Adaptive, Supportive or Protective Equipment (ICD-10-PCS; 2016-11-29)
PROC: F07Z9FZ Gait Training/Functional Ambulation Treatment using Assistive, Adaptive, Supportive or Protective Equipment (ICD-10-PCS; 2016-11-29)
DX: I69.351 Hemiplegia and hemiparesis following cerebral infarction affecting right dominant side (principal); I48.0 Paroxysmal atrial fibrillation; J44.9 Chronic obstructive pulmonary disease, unspecified; I69.391 Dysphagia following cerebral infarction; R13.10 Dysphagia, unspecified; E03.9 Hypothyroidism, unspecified; E78.5 Hyperlipidemia, unspecified; F17.210 Nicotine dependence, cigarettes, uncomplicated; I10 Essential (primary) hypertension; Z79.01 Long term (current) use of anticoagulants; J40 Bronchitis, not specified as acute or chronic; R42 Dizziness and giddiness; I69.328 Other speech and language deficits following cerebral infarction

== ENCOUNTER 2017-03-27 08:39 | Observation (INO) | payer OTHER ==
[2017-03-27 08:39] VITALS: PULSE 128; BMI 24.8
[2017-03-27] MEDS ORDERED: Sodium Chloride 0.9% 1,000 ML IV STA (08:58)
--- NOTE | 2017-03-27 09:01 | ED PDOC ---
HPI:STROKE - Time Time: 08:59 - Historian Historian: Patient - Chief Complaint Chief Complaint: other (Lightheaded) - Onset Date: 03/27/17 Time: 08:00 Onset: Hours (1) - Timing Timing: Improved - Location Location: None - Radiation Radiation: None - Severity of pain Maximum severity:: Mild Pain Scale:: 0 Severity Current: Mild Pain Scale:: 0 - Associated Symptoms Associated symptoms:: other (Lightheaded, no foca weakness. Denies headache, chest pain or palpitations. No LOC) - Exacerbated by Exacerbated by:: Nothing - Relieved by Relieved by:: Nothing - TPA Positive for Contraindication: Yes Reason tPA is not being Administered: NIHSS 0 NIHSS Stroke Scale - How Severe is the Stroke Level of Consciousness: 0=Alert LOC to Questions: 0=Both comments correct LOC to commands: 0=Obeys both correctly Best Gaze: 0=Normal Visual: 0=No visual loss Facial: 0=Normal Motor Arm - Left: 0=No drift Motor Arm - Right: 0=No drift Motor Leg - Left: 0=No drift Motor Leg - Right: 0=No drift Limb Ataxia: 0=Absent Sensory: 0=Normal Best Language: 0=No aphasia Dysarthia: 0=Normal articulation Extinction & Inattention (Neglect): 0=Normal, no object Score: 0 rTPA Inclusion/Exclusion - Refusal of Treatment Patient Refused Treatment: No - Inclusion Criteria for Altepase Patient is 18 years or Older: Yes The Clinical Diagnosis of Ischemic Stroke That is Causing a Potentially Disabling Neurological Deficit: No Time of Onset is Well Established to be Less Than 270 Minute Before Treatment Would Begin: Yes Risk/Benefit Discussed With Patient/Family Member Present: No Past Medical History Vital Signs: Last Vital Signs Temp 97.0 F L 03/27/17 08:45 Pulse 58 L 03/27/17 08:45 Resp 18 03/27/17 08:45 BP 84/49 L 03/27/17 08:45 Pulse Ox 97 03/27/17 08:45 - Medical History PMH: Atrial Fibrillation, Bronchitis, CAD, HTN, Hypothyroidism Denies: Chronic Kidney Disease - Family History Family History: States: Unknown Family Hx - Immunization History Hx Tetanus Toxoid Vaccination: No Hx Influenza Vaccination: Yes Hx Pneumococcal Vaccination: No - Home Medications Home Medications: Ambulatory Orders Medication Instructions Recorded Levothyroxine Sodium 25 mcg PO DAILY 11/23/16 Apixaban [Eliquis] 2.5 mg PO BID #60 tab 11/28/16 Famotidine [Pepcid] 20 mg PO DAILY 11/28/16 Magnesium Oxide [Mag-Ox] 400 mg PO BID #60 tab 11/28/16 Metoprolol Tartrate [Lopressor] 12.5 mg PO BID 11/28/16 Rosuvastatin Calcium [Crestor] 20 mg PO HS 11/28/16 Aspirin [Aspirin Chewable] 81 mg PO DAILY #30 12/09/16 - Allergies Allergies/Adverse Reactions: Allergies Allergy/AdvReac Type Severity Reaction Status Date / Time Antihistamines - Alkylamine Allergy Mild A-fib Verified 03/27/17 08:47 Penicillins Allergy Mild SWELLING Verified 03/27/17 08:47 Review of Systems ROS Statement: Except As Marked, All Systems Reviewed And Found Negative Neurological: Positive for: Other (Lightheaded) Physical Exam - Reviewed Nursing Documentation Reviewed: Yes Vital Signs Reviewed: Yes - Physical Exam Appears: Positive for: Non-toxic, No Acute Distress Head Exam: Positive for: ATRAUMATIC, NORMAL INSPECTION, NORMOCEPHALIC Skin: Positive for: Normal Color, Warm, DRY Eye Exam: Positive for: EOMI, Normal appearance, PERRL ENT: Positive for: Normal ENT Inspection Neck: Positive for: Normal, Painless ROM Cardiovascular/Chest: Positive for: Regular Rate, Rhythm Respiratory: Positive for: CNT, Normal Breath Sounds Gastrointestinal/Abdominal: Positive for: Normal Exam, Bowel Sounds, Soft Back: Positive for: Normal Inspection Extremity: Positive for: Normal ROM Neurologic/Psych: Positive for: Alert, Oriented - Laboratory Results Result Diagrams: 03/27/17 09:28 03/27/17 09:28 - ECG O2 Sat by Pulse Oximetry: 97 Disposition - Clinical Impression Clinical Impression: Near syncope - Patient ED Disposition Is Patient to be Admitted: Yes - Disposition Disposition Time: 10:13 Condition: FAIR Forms: [facility] (Japanese) - Pt Status Changed To: Hospital Disposition Of: Observation - POA Present On Arrival: None
[2017-03-27 09:35] LABS: BASO % 0.3 % (0.0-2.0); EOS % 0.2 % (0.0-4.0); LYMPH # 1.8 K/uL (1.0-4.3); LYMPH % 27.7 % (20.0-40.0); MEAN CELL VOLUME 104.5 fl (81.0-99.0); MEAN CORPUSCULAR HEMOGLOBIN 35.4 pg (27.0-31.0); MEAN CORPUSCULAR HGB CONC 33.8 g/dL (33.0-37.0); MEAN PLATELET VOLUME 7.7 fl (7.2-11.7); MONO # 0.5 K/uL (0.0-0.8); NEUT % 63.8 % (50.0-75.0); NRBC % 0.1 % (0.0-0.0); RBC 3.66 Mil/uL (3.80-5.20); RED CELL DISTRIBUTION WIDTH 13.1 % (11.5-14.5); WHITE BLOOD COUNT 6.3 K/uL (4.8-10.8)
--- NOTE | 2017-03-27 09:43 | CT ---
PROCEDURE: CT HEAD WITHOUT CONTRAST. HISTORY: code stroke COMPARISON: 11/23/2016 performed at [facility] TECHNIQUE: Axial computed tomography images were obtained through the head/brain without intravenous contrast. Radiation dose: Total exam DLP = mGy-cm. This CT exam was performed using one or more of the following dose reduction techniques: Automated exposure control, adjustment of the mA and/or kV according to patient size, and/or use of iterative reconstruction technique. FINDINGS: HEMORRHAGE: No intracranial hemorrhage. BRAIN: No mass effect or edema. 759.32 old left basal ganglia infarct with encephalomalacia. No evidence of acute infarct. VENTRICLES: Unremarkable. No hydrocephalus. CALVARIUM: Unremarkable. PARANASAL SINUSES: Chronic ethmoid and left maxillary sinusitis. Please note that only a very small portion of the maxillary sinuses are included in this examination. MASTOID AIR CELLS: Unremarkable as visualized. No inflammatory changes. OTHER FINDINGS: None. IMPRESSION: No evidence of acute infarct. Old left basal ganglia infarct. Chronic ethmoid and left maxillary sinusitis. THE FINDINGS IN THIS EXAMINATION WERE DISCUSSED, BY TELEPHONE, WITH DR. Acosta 9:40 A.M. ON 03/27/2017.
[2017-03-27 09:53] LABS: ALB/GLOB RATIO 1.2 (1.0-2.1); ALT/SGPT 39 U/L (9-52); AST/SGOT 32 U/L (14-36); BLOOD UREA NITROGEN 19 mg/dl (7-17); CALCIUM 9.6 mg/dL (8.4-10.2); GFR AFRICAN-AMERICAN 46; GFR NON-AFRICAN AMERICAN 38; HDL CHOLESTEROL 41 MG/DL (30-70)
[2017-03-27 09:56] LABS: INR 1.1 (0.9-1.2); PARTIAL THROMBOPLASTIN TIME 32.1 Seconds (25.6-37.1); PROTHROMBIN TIME 12.6 Seconds (9.8-13.1)
[2017-03-27 10:04] LABS: LDL CHOLESTEROL 108 mg/dL (0-129)
--- NOTE | 2017-03-27 10:07 | RAD ---
HISTORY: lightheaded COMPARISON: 08/29/2010 FINDINGS: LUNGS: No active pulmonary disease. PLEURA: No significant pleural effusion identified, no pneumothorax apparent. CARDIOVASCULAR: Normal. OSSEOUS STRUCTURES: No significant abnormalities. VISUALIZED UPPER ABDOMEN: Normal. OTHER FINDINGS: None. IMPRESSION: No active disease.
--- NOTE | 2017-03-27 23:38 | HP ---
ADMITTING HISTORY AND PHYSICAL HISTORY OF PRESENT ILLNESS: Ms. Morales is a 67-year-old female, who was admitted via the emergency room, but she felt dizzy and lightheaded while at work. 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 She was brought to the emergency room where she was noted to be hypotensive and had atrial fibrillation. She was therefore admitted to telemetry for monitoring. PAST MEDICAL HISTORY: She has a past medical history of recent cerebrovascular accident with no residual hemiparesis or neurologic abnormalities. She also has history of chronic atrial fibrillation and hypothyroidism. FAMILY HISTORY: Remarkable for sister, who has cardiomyopathy. SOCIAL HISTORY: Quit smoking several months ago after she discovered she had a stroke. She does not drink and does not use drugs. REVIEW OF SYSTEMS: Remarkable for poor memory. PHYSICAL EXAMINATION: GENERAL: Patient is alert, oriented to person, place and time; appears much more comfortable since admission. VITAL SIGNS: Blood pressure 115/67, pulse of 62, respiratory rate 20 per minute. She is afebrile. O2 sat 98% on room air. SKIN: Shows fair turgor. HEENT: Pupils equal, reactive to light and accommodation. NECK: JVP flat. LUNGS: Clear. HEART: Irregular rhythm. No murmurs or gallops are appreciated. BREASTS : Normal. ABDOMEN: Soft, nontender, no organomegaly. EXTREMITIES: Show no edema or cyanosis. CENTRAL NERVOUS SYSTEM: No gross deficits appreciated. LABORATORY DATA: Remarkable for WBC of 6.3, hemoglobin 13.0, platelet counts of 238,000. Sodium 138, potassium 4.4, BUN 19, creatinine 1.4, serum glucose 128. Troponin less than 0.012. CT scan of the brain, no acute pathology noted. EKG, remarkable for atrial fibrillation. Chest x-ray, unremarkable. IMPRESSION: Clinical symptoms appear to be due to a combination of factors, 1. Hypotension. 2. Cardiac arrhythmias. Patient also has a history of hypothyroidism and cerebrovascular accident. PLAN: The plan is to monitor patient in telemetry. Continue aspirin. I would also obtain cardiac evaluation for atrial fibrillation. Neurology workup as outpatient may be indicated if no other abnormalities are found. Jad Marcano MD [facility] # [id number]
[2017-03-28 08:18] VITALS: RESP 20; TEMP 98.6; O2SAT 96
[2017-03-28] MEDS ORDERED: Levothyroxine 25 MCG TAB PO SCH (09:00)
--- NOTE | 2017-03-28 09:21 | CP.PCM.DIS ---
Provider - Provider Date of Admission: 03/27/17 10:13 Attending physician: Jad Marcano MD Time Spent in preparation of Discharge (in minutes): 30 Diagnosis - Discharge Diagnosis (1) Near syncope Status: Acute (2) History of atrial fibrillation Status: Acute (3) History of hypertension Status: Chronic (4) History of hypothyroidism Status: Chronic Hospital Course - Lab Results Lab Results: Most Recent Lab Values WBC 6.3 K/uL (4.8-10.8) 03/27/17 09: RBC 3.66 Mil/uL (3.80-5.20) L 03/27/17: Hgb 13.0 g/dL (12.0-16.0) 03/27/17: Hct 38.3 % (34.0-47.0) 03/27/17: MCV 104.5 fl (81.0-99.0) H 03/27/17 09: MCH 35.4 pg (27.0-31.0) H 03/27/17: MCHC 33.8 g/dL (33.0-37.0) 03/27/17: RDW 13.1 % (11.5-14.5) 03/27/17: Plt Count 238 K/uL (130-400) 03/27/17: MPV 7.7 fl (7.2-11.7) 03/27/17: Neut % (Auto) 63.8 % (50.0-75.0) 03/27/17: Lymph % (Auto) 27.7 % (20.0-40.0) 03/27/17: Saunders % (Auto) 8.0 % (0.0-10.0) 03/27/17: Eos % (Auto) 0.2 % (0.0-4.0) 03/27/17 Baso % (Auto) 0.3 % (0.0-2.0) 03/27/17: Neut # 4.0 K/uL (1.8-7.0) 03/27/17: Lymph # 1.8 K/uL (1.0-4.3) 03/27/17:28 Saunders # 0.5 K/uL (0.0-0.8) 03/27/17 09:28 Eos # 0.0 K/uL (0.0-0.7) 03/27/17 09: Baso # 0.0 K/uL (0.0-0.2) 03/27/17 09:28 PT 12.6 Seconds (9.8-13.1) 03/27/17 09: INR 1.1 (0.9-1.2) 03/27/17: APTT 32.1 Seconds (25.6-37.1) 03/27/17 09:28 Sodium 138 mmol/l (132-148) 03/27/17: Potassium 4.4 MMOL/L (3.6-5.0) 03/27/17: Chloride 105 mmol/L (98-107) 03/27/17: Carbon Dioxide 26 mmol/L (22-30) 03/27/17: Anion Gap 11 (10-20) 03/27/17 09:28 BUN 19 mg/dl (7-17) H 03/27/17:28 Creatinine 1.4 mg/dl (0.7-1.2) H 03/27/17:28 Est GFR ( Amer) 46 03/27/17 09: Est GFR (Non-Af Amer) 38 03/27/17 09:28 POC Glucose (mg/dL) 110 mg/dL (65-110) 03/27/17 08:52 Random Glucose 128 mg/dL (65-105) H 03/27/17 09:28 Hemoglobin A1c 6.2 % (4.2-6.5) 03/27/17 09:28 Calcium 9.6 mg/dL (8.4-10.2) 03/27/17 09:28 Total Bilirubin 0.6 mg/dl (0.2-1.3) 03/27/17 09:28 AST 32 U/L (14-36) 03/27/17: ALT 39 U/L (9-52) 03/27/17 09:28 Alkaline Phosphatase 60 U/L (38-126) 03/27/17 09:28 Troponin I < 0.0120 ng/mL (0.00-0.120) 03/27/17 09:28 Total Protein 7.4 G/DL (6.3-8.2) 03/27/17 09:28 Albumin 4.0 g/dL (3.5-5.0) 03/27/17 09:28 Globulin 3.4 gm/dL (2.2-3.9) 03/27/17 09:28 Albumin/Globulin Ratio 1.2 (1.0-2.1) 03/27/17 09:28 Triglycerides 138 mg/DL (0-149) 03/27/17 09: Cholesterol 173 mg/dL (0-199) 03/27/17 09: LDL Cholesterol Direct 108 mg/dL (0-129) 03/27/17: HDL Cholesterol 41 MG/DL (30-70) 03/27/17 09:28 Blood Type A NEGATIVE 03/27/17 09:28 Antibody Screen Negative 03/27/17 09:28 BBK History Checked Patient has bt 03/27/17 09:28 - Hospital Course Hospital Course: feels better no recurrence of near syncope Discharge Exam - Head Exam Head Exam: ATRAUMATIC, NORMAL INSPECTION, NORMOCEPHALIC - Eye Exam Eye Exam: EOMI, Normal appearance, PERRL Pupil Exam: NORMAL ACCOMODATION, PERRL - GI/Abdominal Exam GI & Abdominal Exam: Normal Bowel Sounds - Rectal Exam Rectal Exam: NORMAL INSPECTION - Neurological Exam Neurological exam: Alert, CN II-XII Intact, Normal Gait, Oriented x3, Reflexes Normal - Psychiatric Exam Psychiatric exam: Normal Affect, Normal Mood - Skin Skin Exam: Dry, Intact, Normal Color, Warm Discharge Plan - Follow Up Plan Condition: FAIR Disposition: HOME/ ROUTINE Patient education suggested?: Yes Additional Instructions: discharge today if cleared by money laundering investigator
[2017-03-28 09:47] VITALS: BP 111/61; PULSE 69
--- NOTE | 2017-03-28 10:56 | CARD ---
APPROVED REPORT EKG Measurement Heart [id number] [place] [id number] <Conclusion> Normal sinus rhythm Possible Left atrial enlargement Nonspecific ST and T wave abnormality Abnormal ECG
--- NOTE | 2017-03-28 10:58 | CARD ---
APPROVED REPORT EKG Measurement Heart [id number] <Conclusion> Sinus bradycardia Possible Left atrial enlargement Left axis deviation Nonspecific ST and T wave abnormality Abnormal ECG
--- NOTE | 2017-03-28 11:46 | CP.PCM.CON ---
History of Present Illness - History of Present Illness History of Present Illness: 67 y/o w/f admitted with lightheadedness BP in ER: 84/49 Pt was admitted 2* to having had a CVA 12/10 with dysphasia and Right side paresis Pt had been on metoprolol PMH: Atrial Fibrillation now in NSR Hypothyroid EKG: NSR Pt feels well now with normal BP & HR Pt may be discharged at any time Past Patient History - Past Medical History & Family History Past Medical History?: Yes - Past Social History Smoking Status: Former Smoker - CARDIAC Hx Cardiac Disorders: Yes Hx Atrial Fibrillation: Yes Hx Hypertension: Yes - PULMONARY Hx Respiratory Disorders: Yes Hx Bronchitis: Yes - NEUROLOGICAL Hx Neurological Disorder: No - HEENT Hx HEENT Problems: No - RENAL Hx Chronic Kidney Disease: No - ENDOCRINE/METABOLIC Hx Endocrine Disorders: Yes Hx Hypothyroidism: Yes - HEMATOLOGICAL/ONCOLOGICAL Hx Blood Disorders: No Hx AIDS: No Hx Human Immunodeficiency Virus (HIV): No - INTEGUMENTARY Hx Dermatological Problems: No - MUSCULOSKELETAL/RHEUMATOLOGICAL Hx Musculoskeletal Disorders: No Hx Falls: No - GASTROINTESTINAL Hx Gastrointestinal Disorders: No - GENITOURINARY/GYNECOLOGICAL Hx Genitourinary Disorders: No - PSYCHIATRIC Hx Psychophysiologic Disorder: No Hx Substance Use: No - SURGICAL HISTORY Hx Surgeries: Yes Hx Cataract Extraction: Yes Other/Comment: Hx of basilio breast biopsy - ANESTHESIA Hx Anesthesia: Yes Hx Anesthesia Reactions: No Hx Malignant Hyperthermia: No Meds Allergies/Adverse Reactions: Allergies Allergy/AdvReac Type Severity Reaction Status Date / Time Antihistamines - Alkylamine Allergy Mild A-fib Verified 03/27/17 08:47 Penicillins Allergy Mild SWELLING Verified 03/27/17 08:47 - Medications Medications: Current Medications Apixaban (Eliquis) 2.5 mg PO BID [facility] PRN Reason: Protocol Last Admin: 03/28/17 09:00 Dose: 2.5 mg Aspirin (Aspirin Chewable) 81 mg PO DAILY [facility] Last Admin: 03/28/17 09:01 Dose: 81 mg Atorvastatin Calcium (Lipitor) 40 mg PO HS [facility] Last Admin: 03/27/17 21:36 Dose: 40 mg Famotidine (Pepcid) 20 mg PO DAILY [facility] Last Admin: 03/28/17 09:01 Dose: 20 mg Levothyroxine Sodium (Synthroid) 25 mcg PO DAILY [facility] Last Admin: 03/28/17 09:00 Dose: 25 mcg Physical Exam - Constitutional Appears: Well - Head Exam Head Exam: NORMAL INSPECTION - Eye Exam Eye Exam: Normal appearance - ENT Exam ENT Exam: Normal Exam - Neck Exam Neck exam: Positive for: Normal Inspection - Respiratory Exam Respiratory Exam: NORMAL BREATHING PATTERN - Cardiovascular Exam Cardiovascular Exam: REGULAR RHYTHM Results - Vital Signs Recent Vital Signs: Last Vital Signs Temp 98.6 F 03/28/17 09:00 Pulse 69 03/28/17 09:00 Resp 20 03/28/17 09:00 BP 111/61 03/28/17 09:00 Pulse Ox 96 03/28/17 09:00 - Labs Result Diagrams: 03/27/17 09:28 03/27/17 09:28 Labs: Laboratory Results - last 24 hr 03/27/17 09:28 Hemoglobin A1c 6.2 Assessment & Plan (1) Near syncope Assessment and Plan: Pt appears stable may be discharged at any time f/u Dr Chun Status: Acute (2) CVA (cerebral vascular accident) Status: Acute Priority: High (3) History of atrial fibrillation Status: Acute (4) History of hypothyroidism Status: Chronic
== END 2017-03-28 12:47 | disposition home or self-care (01) ==
LOC: H.ER 08:39 → H.ERHOLD 10:13 → H.TEL 13:12
PROVIDERS: ADMIT Internal Medicine Pulmonary Disease; ATTEND Internal Medicine Pulmonary Disease
DX: R55 Syncope and collapse (principal); I48.2 Chronic atrial fibrillation; E03.9 Hypothyroidism, unspecified; Z86.73 Personal history of transient ischemic attack (TIA), and cerebral infarction without residual deficits; Z87.891 Personal history of nicotine dependence; Z88.0 Allergy status to penicillin; I10 Essential (primary) hypertension; I25.10 Atherosclerotic heart disease of native coronary artery without angina pectoris; I95.9 Hypotension, unspecified
CPT/HCPCS: 70450; 71045; 80053; 80061; 82948; 83036; 84484; 85025; 85610; 85730; 86850; 86900; 93005; 96360; 99285; G0378; J7040

== ENCOUNTER 2017-04-03 16:00 | Emergency (ER) | payer MEDICARE, OTHER ==
[2017-04-03 16:00] VITALS: PULSE 128; BMI 24.8
[2017-04-03 16:07] VITALS: TEMP 97.1
--- NOTE | 2017-04-03 16:59 | ED PDOC ---
Syncope/Near Syncope/Dizziness Time Seen by Provider: 04/03/17 16:12 Chief Complaint (Nursing): Dizziness/Lightheaded Chief Complaint (Provider): dizziness Current Symptoms Are (Timing): Gone Now Activity At Onset Of Symptoms: Standing Possible Causative Factor(s): Lightheaded W/Standing Fall Associated With With Symptoms: No Additional Complaint(s): 67yo F with recent hx of Basil ganglia CVA and Afib in ER with c/o of dizziness and near syncopal episode-describes it feeling dizziness then pale and weakness. states she has took her BP medication-metoprolol this AM-no recent changes to Medication. negative for: chest pain, SOB, back pain, epigastric pain, throat pain , tinnitus , vision changes, BUTLER, numbness to arms, legs, no increased weakness in extremities. no change in MS, or recent injury. Pt was seen and admitted last week for similar episodes, had improved symptoms, unremarkable labs. pmd: marie, Past Medical History Reviewed: Historical Data, Nursing Documentation, Vital Signs Vital Signs: Last Vital Signs Temp 97.1 F L 04/03/17 16:07 Pulse 88 04/03/17 16:05 Resp 16 04/03/17 16:05 BP 98/72 L 04/03/17 16:05 Pulse Ox 96 04/03/17 16:05 - Medical History PMH: Atrial Fibrillation, Bronchitis, CAD, HTN, Hypothyroidism Denies: Chronic Kidney Disease - Family History Family History: States: Unknown Family Hx - Immunization History Hx Tetanus Toxoid Vaccination: No Hx Influenza Vaccination: Yes Hx Pneumococcal Vaccination: No - Home Medications Home Medications: Ambulatory Orders Medication Instructions Recorded Levothyroxine Sodium 25 mcg PO DAILY 11/23/16 Apixaban [Eliquis] 2.5 mg PO BID #60 tab 11/28/16 Famotidine [Pepcid] 20 mg PO DAILY 11/28/16 Metoprolol Tartrate [Lopressor] 12.5 mg PO BID 11/28/16 Rosuvastatin Calcium [Crestor] 20 mg PO HS 11/28/16 Aspirin [Aspirin Chewable] 81 mg PO DAILY #30 12/09/16 Azithromycin [Zithromax] 250 mg PO DAILY #6 tab 04/03/17 - Allergies Allergies/Adverse Reactions: Allergies Allergy/AdvReac Type Severity Reaction Status Date / Time Antihistamines - Alkylamine Allergy Mild A-fib Verified 04/03/17 16:05 Penicillins Allergy Mild SWELLING Verified 04/03/17 16:05 Review of Systems ROS Statement: Except As Marked, All Systems Reviewed And Found Negative Constitutional: Positive for: Weakness Eyes: Negative for: Vision Change ENT: Negative for: Ear Pain Respiratory: Negative for: Cough, Shortness of Breath Gastrointestinal: Negative for: Nausea, Vomiting, Abdominal Pain Neurological: Positive for: Dizziness. Negative for: Headache Physical Exam - Reviewed Nursing Documentation Reviewed: Yes Vital Signs Reviewed: Yes - Physical Exam Appears: Positive for: Well, Non-toxic, No Acute Distress Skin: Positive for: Normal Color, Warm, DRY Eye Exam: Positive for: EOMI, Normal appearance, PERRL Neck: Positive for: Normal, Painless ROM Cardiovascular/Chest: Positive for: Regular Rate, Rhythm, Other (no cartoid bruit noted) Respiratory: Positive for: CNT, Normal Breath Sounds Gastrointestinal/Abdominal: Positive for: Normal Exam, Bowel Sounds, Soft. Negative for: Tenderness Back: Negative for: L CVA Tenderness, R CVA Tenderness Neurologic/Psych: Positive for: Alert, Oriented - Laboratory Results Result Diagrams: 04/03/17 17:05 04/03/17 17:05 - ECG O2 Sat by Pulse Oximetry: 96 - Radiology X-Ray: Read By Radiologist X-Ray Interpretation: Infiltrates - CT Scan/US head Other Rad Studies (CT/US): Radiology Report Reviewed (no acute diease) - Progress ED Course And Treament: MD josué made aware. pt willget CT head and additional labs: Orders Category Date Time Status HEAD W/O CONTRAST [CT] Stat CT 04/03/17 16:32 Ordered ELECTROCARDIOGRAM Stat Cardiology 04/03/17 16:30 Ordered COMP METABOLIC PANEL Stat Chem 04/03/17 17:05 Received TROPONIN I Stat Chem 04/03/17 17:05 Received EKG-ED [[id number]] STAT ED Care 04/03/17 16:31 Active CHEST PORTABLE [RAD] Stat Exams 04/03/17 16:30 Taken CBC (WITH DIFFERENTIAL) Stat JOSE 04/03/17 17:05 Received D DIMER [COAG] Stat JOSE 04/03/17 17:05 Received ERYTHROCYTE SEDIMENTATION RATE Stat JOSE 04/03/17 17:05 Received Access Nurse CONT NURSING 01/09/18 16:31 Active Glucose, Blood, POC STAT Pt Care 04/03/17 16:31 Active Vital Signs STAT Pt Care 04/03/17 16:31 Active Re-evaluation Time: 18:10 Condition: Improved Medical Decision Making Medical Decision Making: Pt improved in ER, Pt offered admission, but declined. Pt will be treat for PNA with azithromycin and advised to have prompt MD rangel with MD Jeet Vital Signs - 24 hr 04/03/17 04/03/17 04/03/17 16:05 16:07 18:11 Temperature 97.1 F L 97.1 F L Pulse Rate 88 Respiratory 16 Rate Blood Pressure 98/72 L O2 Sat by Pulse 96 96 Oximetry labs: 04/03/17 04/03/17 04/03/17 17:05 17:05 17:05 WBC 5.8 RBC 3.49 L Hgb 12.2 Hct 36.9 MCV 105.6 H MCH 34.8 H MCHC 33.0 RDW 13.0 Plt Count 166 MPV 7.8 Neut % (Auto) 61.4 Lymph % (Auto) 27.3 Dade % (Auto) 10.9 H Eos % (Auto) 0.2 Baso % (Auto) 0.2 Neut # 3.6 Lymph # 1.6 Dade # 0.6 Eos # 0.0 Baso # 0.0 ESR Pending D-Dimer, Quantitative 129 Sodium 142 Potassium 4.4 Chloride 103 Carbon Dioxide 31 H Anion Gap 12 BUN 16 Creatinine 1.4 H Est GFR ( Amer) 46 Est GFR (Non-Af Amer) 38 Random Glucose 89 Calcium 9.8 Total Bilirubin 0.4 AST 30 ALT 31 Alkaline Phosphatase 65 Troponin I < 0.0120 Total Protein 7.1 Albumin 3.6 Globulin 3.4 Albumin/Globulin Ratio 1.1 Disposition - Clinical Impression Clinical Impression: Pneumonia - Patient ED Disposition Is Patient to be Admitted: No Counseled Patient/Family Regarding: Studies Performed, Diagnosis, Need For Followup, Rx Given - Disposition Disposition: Routine/Home Disposition Time: 18:12 Condition: STABLE Prescriptions: Azithromycin [Zithromax] 250 mg PO DAILY #6 tab Instructions: Community Acquired Pneumonia (ED)
[2017-04-03 17:10] LABS: BASO % 0.2 % (0.0-2.0); EOS % 0.2 % (0.0-4.0); HEMOGLOBIN 12.2 g/dL (12.0-16.0); LYMPH # 1.6 K/uL (1.0-4.3); LYMPH % 27.3 % (20.0-40.0); MEAN CELL VOLUME 105.6 fl (81.0-99.0); MEAN CORPUSCULAR HEMOGLOBIN 34.8 pg (27.0-31.0); MEAN PLATELET VOLUME 7.8 fl (7.2-11.7); MONO # 0.6 K/uL (0.0-0.8); MONO % 10.9 % (0.0-10.0); NEUT # 3.6 K/uL (1.8-7.0); NEUT % 61.4 % (50.0-75.0); RBC 3.49 Mil/uL (3.80-5.20); WHITE BLOOD COUNT 5.8 K/uL (4.8-10.8)
--- NOTE | 2017-04-03 17:17 | RAD ---
HISTORY: Chest pain COMPARISON: 03/27/2017. FINDINGS: LUNGS: The right lung is well inflated and clear. There is ill-defined airspace disease in the left lower lobe. PLEURA: No large right pleural effusion. Blunting of the left costophrenic angle, no pneumothorax apparent. CARDIOVASCULAR: Normal. OSSEOUS STRUCTURES: No significant abnormalities. VISUALIZED UPPER ABDOMEN: Normal. OTHER FINDINGS: None. IMPRESSION: Left lower lobe airspace disease may represent atelectasis or pneumonia. Suspect small left pleural effusion.
[2017-04-03 17:32] LABS: ALB/GLOB RATIO 1.1 (1.0-2.1); ALBUMIN 3.6 g/dL (3.5-5.0); ALT/SGPT 31 U/L (9-52); AST/SGOT 30 U/L (14-36); BLOOD UREA NITROGEN 16 mg/dl (7-17); CALCIUM 9.8 mg/dL (8.4-10.2); GFR AFRICAN-AMERICAN 46; GFR NON-AFRICAN AMERICAN 38
--- NOTE | 2017-04-03 18:02 | CT ---
PROCEDURE: CT HEAD WITHOUT CONTRAST. HISTORY: presyncopal COMPARISON: 03/27/2017. TECHNIQUE: Axial computed tomography images were obtained through the head/brain without intravenous contrast. Radiation dose: Total exam DLP = 840.33 mGy-cm. This CT exam was performed using one or more of the following dose reduction techniques: Automated exposure control, adjustment of the mA and/or kV according to patient size, and/or use of iterative reconstruction technique. FINDINGS: HEMORRHAGE: No intracranial hemorrhage. BRAIN: There is cystic encephalomalacia in the left olivas radiata and basal ganglia. There is no mass, mass effect or abnormal extra-axial fluid collection. VENTRICLES: There is mild age-related global parenchymal volume loss and proportionate enlargement of the ventricles and cortical sulci. There is ex vacuo dilatation of the left lateral ventricle. CALVARIUM: The skull base and calvarium are normal. PARANASAL SINUSES: Predominantly clear. Minimal chronic left maxillary sinusitis. MASTOID AIR CELLS: Predominantly clear. OTHER FINDINGS: None. IMPRESSION: 1. No acute intracranial abnormality. 2. Cystic encephalomalacia in the left basal ganglia with volume loss and ex vacuo dilatation of the left lateral ventricle, sequela of remote MCA territory infarction.
[2017-04-03] MEDS: Sodium Chloride 0.9% 1,000 ML IV STA (18:29)
[2017-04-03 19:24] VITALS: BP 126/78; PULSE 74; RESP 18; O2SAT 98
--- NOTE | 2017-04-04 11:01 | CARD ---
APPROVED REPORT EKG Measurement Heart [id number] <Conclusion> Atrial fibrillation with rapid ventricular response Nonspecific ST and T wave abnormality Abnormal ECG
== END 2017-04-03 19:24 | disposition home or self-care (01) ==
LOC: H.ER 16:00
DX: J18.9 Pneumonia, unspecified organism (principal); E03.9 Hypothyroidism, unspecified; I10 Essential (primary) hypertension; I48.91 Unspecified atrial fibrillation; Z79.01 Long term (current) use of anticoagulants; Z79.82 Long term (current) use of aspirin
CPT/HCPCS: 70450; 71045; 80053; 82948; 84484; 85025; 85378; 85651; 87804; 93005; 99282; J7040